=== PATIENT | male | born 1935 | race Caucasian/White ===

== ENCOUNTER → 2017-12-09 | Outpatient (CLI) | payer MEDICARE, OTHER ==
[2017-12-09 15:39] LABS: ABSOLUTE EOSINOPHILS # (AUTO) 0.1 10^3/uL (0.0-0.6); ABSOLUTE LYMPHOCYTES (AUTO) 1.3 10^3/uL (0.5-4.7); ABSOLUTE NEUT (AUTO) 9.8 10^3/uL (1.7-8.2); BASOPHILS % (AUTO) 0.3 % (0-2); HEMOGLOBIN 11.8 g/dL (13.5-17.0); LYMPHOCYTES % (AUTO) 10.5 % (13-45); MEAN CORPUSCULAR HEMOGLOBIN 33.4 pg (27.0-33.4); MEAN CORPUSCULAR HGB CONC 32.9 g/dL (32.0-36.0); MEAN CORPUSCULAR VOLUME 102 fl (80-97); PLATELET COUNT 236 10^3/uL (150-450); RED BLOOD COUNT 3.54 10^6/uL (4.35-5.55); RED CELL DISTRIBUTION WIDTH 12.9 % (11.5-14.0); SEGMENTED NEUTROPHILS % (AUTO) 80.2 % (42-78); TOTAL CELLS COUNTED % (AUTO) 100 %; WHITE BLOOD COUNT 12.2 10^3/uL (4.0-10.5)
[2017-12-09 15:57] LABS: ALANINE AMINOTRANSFERASE 38 U/L (21-72); ALBUMIN 3.5 g/dL (3.5-5.0); ALKALINE PHOSPHATASE 101 U/L (38-126); ANION GAP 7 (5-19); ASPARTATE AMINO TRANSFERASE 20 U/L (17-59); BILIRUBIN,DIRECT 0.3 mg/dL (0.0-0.4); BILIRUBIN,TOTAL 0.3 mg/dL (0.2-1.3); BLOOD UREA NITROGEN 22 mg/dL (7-20); CALCIUM 9.5 mg/dL (8.4-10.2); CARBON DIOXIDE 25 mmol/L (22-30); CHLORIDE 109 mmol/L (98-107); GLUCOSE 57 mg/dL (75-110); POTASSIUM 4.9 mmol/L (3.6-5.0); SODIUM 141.4 mmol/L (137-145); TOTAL PROTEIN 6.3 g/dL (6.3-8.2)
[2017-12-09 16:37] LABS: ERYTHROCYTE SEDIMENTATION RATE 63 mm/hr (0-20)
== END ==
LOC: OD 14:19
PROVIDERS: ATTEND Preventive Medicine Undersea and Hyperbaric Medicine
DX: E11.52 Type 2 diabetes mellitus with diabetic peripheral angiopathy with gangrene (principal); L03.039 Cellulitis of unspecified toe
CPT/HCPCS: 36415; 80053; 83036; 85025; 85652

== ENCOUNTER → 2017-12-12 | Outpatient (CLI) | payer MEDICARE, OTHER ==
--- NOTE | 2017-12-12 16:32 | XCELERA REPORT ---
[address] [address] Lower Extremity Arterial Evaluation Name: VANI ZHANG Age: 82 yrs Gender: Male : 1935 Patient Status: Outpatient Patient Location: Study Date: 12/12/2017 03:05 PM Procedure: A color flow and duplex scan of the lower extremity arteries was performed bilaterally with velocity and waveform anaylsis. Ankle brachial indicies performed. Reason For Study: PVD Ordering Physician: LILLIAN STOVER Performed By: Flor Esteves Measurements and Calculations Right Left BAIL BOND AGENT PSV 120.5 96.7 cm/sec Prox PFA PSV -42.8 -32.6 cm/sec Prox SFA PSV -69.9 72.0 cm/sec Mid SFA PSV -131.3 -73.3 cm/sec Dist SFA PSV -84.5 -76.4 cm/sec Prox Pop A PSV 72.3 60.2 cm/sec Dist ИРИНА PSV 51.9 34.3 cm/sec Dist BACK STAYER PSV 25.8 -57.2 cm/sec Ozzy Pedis PSV -56.7 57.2 cm/sec Right Side Arterial Evaluation Normal velocity and triphasic waveforms noted from the Common Femoral artery to the Popliteal artery. Biphasic int the deep Femoral artery. Monophasic in the infrageniculate vessels. 50-99 % stenosis at the infrageniculate vessels . Moderately preserved waveforms. Ankle Brachial index is 0.7. Left Side Arterial Evaluation Normal velocity and triphasic waveforms noted from the Common Femoral artery to the Popliteal artery. Biphasic int the deep Femoral artery. And in the infrageniculate vessels. 20-49 % stenosis at the infrageniculate vessels . Well preserved waveforms. Ankle Brachial index is 1.2 . Interpretation Summary Severe hemodynamically significant lesions in the right lower extremity only, on duplex imaging, at rest. Moderate hemodynamically significant lesions in the left lower extremity only, on duplex imaging, at rest. : LILLIAN STOVER > Emil Stokes
== END ==
LOC: SP 14:29
PROVIDERS: ATTEND Preventive Medicine Undersea and Hyperbaric Medicine
DX: I73.9 Peripheral vascular disease, unspecified (principal)
CPT/HCPCS: 93922; 93925

== ENCOUNTER → 2018-01-09 | Outpatient (CLI) | payer MEDICARE, OTHER ==
--- NOTE | 2018-01-14 14:22 | RADIOLOGY REPORT (SQ) ---
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 NUMBER OF VIEWS: Three views. TECHNIQUE: AP, lateral and oblique radiographic images acquired of the right foot. LIMITATIONS: None. FINDINGS: MINERALIZATION: Normal. BONES: Abnormal appearance of the 4th toe. Amputation versus abnormal destruction of the distal phal anx with associated soft tissue deformity. Apparent transverse fracture of the proximal phalanx with nonunion. Other chronic changes involving the midfoot with osteophytes and the 1st toe with hallux valgus and degenerative changes at the 1st metatarsal phalangeal joint. Spurring on the calcaneus wi th ossification in the plantar soft tissues. JOINTS: No effusions. SOFT TISSUES: No soft tissue swelling. No foreign body. OTHER: No other significant finding. IMPRESSION: ABNORMAL APPEARANCE OF THE 4TH TOE DESCRIBED. OTHER CHRONIC FINDINGS DISCUSSED ABOVE . TECHNICAL DOCUMENTATION: JOB ID: [id number] [employer]- All Rights Reserved Reading location - IP/workstation name: [email or web address]
== END ==
LOC: RAD 10:37
PROVIDERS: ATTEND Preventive Medicine Undersea and Hyperbaric Medicine
DX: E11.621 Type 2 diabetes mellitus with foot ulcer (principal); L97.512 Non-pressure chronic ulcer of other part of right foot with fat layer exposed

== ENCOUNTER → 2018-02-21 | Outpatient (CLI) | payer MEDICARE, OTHER ==
--- NOTE | 2018-02-21 12:07 | RADIOLOGY REPORT (SQ) ---
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 NUMBER OF VIEWS: Three views. TECHNIQUE: AP, lateral and oblique radiographic images acquired of the right foot. LIMITATIONS: None. FINDINGS: MINERALIZATION: Normal. BONES: No acute fracture or dislocation. 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 Old fracture of the proxim al phalanx with nonunion. Erosive changes of the 3rd and 4th metatarsal heads. Chronic changes in t he great toe with hallux valgus and sclerosis and osteophytes in the 1st metatarsal phalangeal joint. Chronic changes in the midfoot with osteophytes. Heel spur with calcification in the plantar soft tissues. SOFT TISSUES: No soft tissue swelling. No foreign body. OTHER: No other significant finding. IMPRESSION: CHRONIC CHANGES ABOVE, SIMILAR APPEARANCE TO THE PRIOR STUDY. TECHNICAL DOCUMENTATION: JOB ID: [id number] [employer]- All Rights Reserved Reading location - IP/workstation name: [email or web address]
== END ==
LOC: OD 11:33
PROVIDERS: ATTEND Preventive Medicine Undersea and Hyperbaric Medicine
DX: L97.512 Non-pressure chronic ulcer of other part of right foot with fat layer exposed (principal)

== ENCOUNTER → 2018-02-21 | Outpatient (CLI) | payer MEDICARE, OTHER ==
[2018-02-21 11:35] LABS: ABSOLUTE EOSINOPHILS # (AUTO) 0.5 10^3/uL (0.0-0.6); ABSOLUTE LYMPHOCYTES (AUTO) 1.7 10^3/uL (0.5-4.7); ABSOLUTE MONOCYTES (AUTO) 0.6 10^3/uL (0.1-1.4); ABSOLUTE NEUT (AUTO) 3.3 10^3/uL (1.7-8.2); BASOPHILS % (AUTO) 0.5 % (0-2); EOSINOPHILS % (AUTO) 7.5 % (0-6); HEMOGLOBIN 13.6 g/dL (13.5-17.0); LYMPHOCYTES % (AUTO) 27.8 % (13-45); MEAN CORPUSCULAR HEMOGLOBIN 33.4 pg (27.0-33.4); MEAN CORPUSCULAR HGB CONC 33.2 g/dL (32.0-36.0); MEAN CORPUSCULAR VOLUME 101 fl (80-97); MONOCYTES % (AUTO) 9.3 % (3-13); PLATELET COUNT 136 10^3/uL (150-450); RED BLOOD COUNT 4.08 10^6/uL (4.35-5.55); RED CELL DISTRIBUTION WIDTH 13.9 % (11.5-14.0); SEGMENTED NEUTROPHILS % (AUTO) 54.9 % (42-78); TOTAL CELLS COUNTED % (AUTO) 100 %; WHITE BLOOD COUNT 6.1 10^3/uL (4.0-10.5)
[2018-02-21 11:59] LABS: ALANINE AMINOTRANSFERASE 39 U/L (21-72); ALBUMIN 3.9 g/dL (3.5-5.0); ALKALINE PHOSPHATASE 97 U/L (38-126); ANION GAP 9 (5-19); ASPARTATE AMINO TRANSFERASE 27 U/L (17-59); BILIRUBIN,DIRECT 0.3 mg/dL (0.0-0.4); BILIRUBIN,TOTAL 0.3 mg/dL (0.2-1.3); BLOOD UREA NITROGEN 25 mg/dL (7-20); CALCIUM 9.4 mg/dL (8.4-10.2); CARBON DIOXIDE 27 mmol/L (22-30); CHLORIDE 108 mmol/L (98-107); GLUCOSE 119 mg/dL (75-110); POTASSIUM 5.1 mmol/L (3.6-5.0); SODIUM 143.9 mmol/L (137-145); TOTAL PROTEIN 6.6 g/dL (6.3-8.2)
[2018-02-21 12:00] LABS: C-REACTIVE PROTEIN < 5.0 mg/L (<10.0)
[2018-02-21 12:13] LABS: ERYTHROCYTE SEDIMENTATION RATE 16 mm/hr (0-20)
== END ==
LOC: WC 10:59
PROVIDERS: ATTEND Preventive Medicine Undersea and Hyperbaric Medicine
DX: E11.621 Type 2 diabetes mellitus with foot ulcer (principal); L97.512 Non-pressure chronic ulcer of other part of right foot with fat layer exposed
CPT/HCPCS: 36415; 80053; 83036; 85025; 85652; 86140

== ENCOUNTER → 2018-03-14 | Outpatient (CLI) | payer MEDICARE, OTHER ==
--- NOTE | 2018-03-14 11:47 | RADIOLOGY REPORT (SQ) ---
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 NUMBER OF VIEWS: Three views right foot. LIMITATIONS: Site of concern not indicated on the radiographs. Probable overlying artifact at the 4 th toe level. This limits assessment for interval change. FINDINGS: Compared to 02/21/2018, further resorption of the 4th metatarsal head. Probable further re sorption of the proximal phalanx as well, allowing for regional presumed artifact. Suspicious for pr ogressive osteomyelitis here. Other changes are stable including great toe DJD and extensive atheros clerotic calcification. OTHER: No other significant finding. IMPRESSION: Progressive 4th digit osteomyelitis. TECHNICAL DOCUMENTATION: JOB ID: [id number] Reading location - IP/workstation name: Unknown
== END ==
LOC: OD 10:26
PROVIDERS: ATTEND Preventive Medicine Undersea and Hyperbaric Medicine
DX: L97.512 Non-pressure chronic ulcer of other part of right foot with fat layer exposed (principal); M86.9 Osteomyelitis, unspecified

== ENCOUNTER → 2018-05-22 | Outpatient (CLI) | payer MEDICARE, OTHER ==
--- NOTE | 2018-05-22 11:48 | RADIOLOGY REPORT (SQ) ---
EXAM DESCRIPTION: FOOT RIGHT COMPLETE COMPLETED DATE/TIME: 05/22/2018 11:04 am REASON FOR STUDY: TYPE 2 DIABETES MELLITUS WITH FOOT ULCER; NON PRESSURE CHRONIC ULCER OF OTH L97.51 2 NON-PRS CHRONIC ULCER OT PRT RIGHT FOOT W FAT LAYER E11.621 TYPE 2 DIABETES MELLITUS WITH FOOT U LCER COMPARISON: 03/14/2018 NUMBER OF VIEWS: Three views. TECHNIQUE: AP, lateral and oblique radiographic images acquired of the right foot. LIMITATIONS: None. FINDINGS: MINERALIZATION: Normal. BONES: There has been further bony resorption of the proximal phalanx of the 4th digit and the 4th me tatarsal head consistent with bony involvement by osteomyelitis. JOINTS: Degenerative changes are again identified at the level of the 1st MTP joint. SOFT TISSUES: There is apparent soft tissue swelling. OTHER: Again there is plantar spurring in calcification in the plantar fascia IMPRESSION: Further bony resorption of the proximal phalanx of the 4th digit and the 4th metatarsal head consistent with bony involvement by osteomyelitis. Other findings as noted above. TECHNICAL DOCUMENTATION: JOB ID: [id number] [email or web address]- All Rights Reserved Reading location - IP/workstation name: [email or web address]
== END ==
LOC: OD 10:41
PROVIDERS: ATTEND Preventive Medicine Undersea and Hyperbaric Medicine
DX: E11.621 Type 2 diabetes mellitus with foot ulcer (principal); L97.512 Non-pressure chronic ulcer of other part of right foot with fat layer exposed

== ENCOUNTER 2018-06-23 06:56 | Emergency (ER) | payer MEDICARE, OTHER ==
--- NOTE | 2018-06-23 07:29 | ER Document Report ---
ED Seizure - General Chief Complaint: Seizure Stated Complaint: POSSIBLE SEIZURE Time Seen by Provider: 06/23/18 07:17 Notes: This is an 82-year-old male who had possible seizures this morning. History of seizures. states that she heard a loud scream. Went into the bedroom and patient was shaking. Patient currently takes phenytoin. Has not had a seizure in quite some time. Patient states the last thing he remembers is when he woke up here. Knows where he is out at this time. Denies any chest pain, headache, neck pain, abdominal pain or other symptoms at this time. Does have bite mann on bilateral lateral aspects of the tongue. - HPI Patient complains to provider of: History of seizures Severity: Moderate Pain Level: Denies Episode witnessed (by whom): Yes Current seizure medications: Phenytoin Character of seizure: Generalized shaking Post-ictal symptoms: Confusion Injuries: None Associated Symptoms: None - Related Data Allergies/Adverse Reactions: No Known Allergies Allergy (Unverified 05/10/15 13:34) Past Medical History - General Information source: Patient, Relative - Social History Smoking Status: Never Smoker Frequency of alcohol use: None Drug Abuse: None Lives with: Spouse/Significant other Family History: Reviewed & Not Pertinent Patient has suicidal ideation: No - unable to assess Patient has homicidal ideation: No - unable to assess - Past Medical History Cardiac Medical History: Denies: Hx Heart Attack, Hx Hypertension Pulmonary Medical History: Denies: Hx Asthma Neurological Medical History: Reports: Hx Seizures - 7-8 YEARS. Denies: Hx Cerebrovascular Accident Endocrine Medical History: Reports: Hx Diabetes Mellitus Type 2 Renal/ Medical History: Denies: Hx Peritoneal Dialysis GI Medical History: Denies: Hx Hepatitis, Hx Hiatal Hernia, Hx Ulcer Infectious Medical History: Denies: Hx Hepatitis Past Surgical History: Denies: Hx Open Heart Surgery, Hx Pacemaker Review of Systems - Review of Systems Notes: Constitutional: denies: Chills, Diaphoresis, Fever, Malaise, Weakness EENT: denies: Eye discharge, Blurred vision, Tearing, Double vision, Nose congestion, Nose discharge, Throat swelling, Mouth pain. Does have some pain on the tongue from biting it during a seizure Cardiovascular: denies: Palpitations, Heart racing, Orthopnea, Dyspnea, Chest pain Respiratory: denies: Cough, Hurts to breathe, Wheezing, Shortness of breath Gastrointestinal: denies: Abdominal pain, Diarrhea, Nausea, Vomiting, Black stools, bright red blood in stool Genitourinary: denies: Burning, Dysuria, Discharge, Frequency, Flank pain, Hematuria Musculoskeletal: denies: Joint pain, Joint swelling, Muscle pain, Muscle stiffness, back pain Hematologic/Lymphatic: denies: Anemia, Easy bleeding, Easy bruising, Blood clots Neurological/Psychological: denies: Confusion, Dementia, Depression, Loss of consciousness. Does endorse history of seizures since a seizure this morning. Skin: No lesions, no masses, no skin breakdown, no abscesses Physical Exam - Vital signs Vitals: Resp Pulse Ox 26 H 95 06/23/18 06:58 06/23/18 06:58 Interpretation: Normal - General General appearance: Appears well, Alert - HEENT Head: Normocephalic, Atraumatic Eyes: Normal Pupils: PERRL Mouth/Lips: Other - There are a few bite mann to the bilateral aspects of the lateral tongue. None requiring sutures. Neck: Normal. No: Brudzinski, Meningismus - Respiratory Respiratory status: No respiratory distress Chest status: Nontender Breath sounds: Normal Chest palpation: Normal - Cardiovascular Rhythm: Regular Heart sounds: Normal auscultation Murmur: No - Abdominal Inspection: Normal Distension: No distension Bowel sounds: Normal Tenderness: Nontender Organomegaly: No organomegaly - Back Back: Normal, Nontender - Extremities General upper extremity: Normal inspection, Nontender, Normal color, Normal ROM , Normal temperature General lower extremity: Normal inspection, Nontender, Normal color, Normal ROM , Normal temperature, Normal weight bearing. No: Jefe's sign - Neurological Neuro grossly intact: Yes Cognition: Normal Orientation: Disoriented to events. No: Disoriented to person, Disoriented to place, Disoriented to time Madhuri Coma Scale Eye Opening: Spontaneous [place] Coma Scale Verbal: Oriented [place] Coma Scale Motor: Obeys Commands Madhuri Coma Scale Total: 15 Speech: Normal Motor strength normal: LUE, RUE, LLE, RLE Additional motor exam normals: No: Involuntary movements, Pronator drift, Weakness Sensory: Normal - Psychological Associated symptoms: Normal affect, Normal mood - Skin Skin Temperature: Warm Skin Moisture: Dry Skin Color: Normal Course - Re-evaluation Re-evalutation: 06/23/18 07:52 Patient more likely had a seizure. We will get a head CT at this time because patient is on Aggrenox and a seizure and was hypertensive. 06/23/18 09:31 Patient more likely had a seizure. Phenytoin level subtherapeutic. Will load at this time. Head CT unremarkable. Basic labs fairly unremarkable. - Vital Signs Vital signs: Temp Pulse Resp BP Pulse Ox 19 137/71 H 96 06/23/18 09:00 06/23/18 08:01 06/23/18 09:00 - Laboratory Result Diagrams: 06/23/18 07:15 06/23/18 07:15 Laboratory results interpreted by me: 06/23/18 06/23/18 06/23/18 07:15 07:15 07:15 RBC 4.26 L MCV 103 H MCH 34.2 H RDW 14.7 H Plt Count 147 L Chloride 110 H BUN 25 H Urine Protein 100 H Urine Blood LARGE H Phenytoin 06/23/18 07:15 RBC MCV MCH RDW Plt Count Chloride BUN Urine Protein Urine Blood Phenytoin < 3.0 L - EKG Interpretation by Oh EKG shows normal: Sinus rhythm, [place], Intervals, QRS Complexes, ST-T Waves Discharge - Discharge Clinical Impression: Epilepsy Qualifiers: Epilepsy type: generalized idiopathic Intractability: not intractable Status epilepticus: without status epilepticus Qualified Code(s): G40.309 - Generalized idiopathic epilepsy and epileptic syndromes, not intractable, without status epilepticus Condition: Good Disposition: HOME, SELF-CARE Instructions: Seizure, Known Epileptic ([facility]) Additional Instructions: Please follow-up with your regular doctor or neurologist. Continue your regular medications. Referrals: GLEN CUEVAS MD [Primary Care Provider] - Follow up in 3-5 days
[2018-06-23 07:47] LABS: APPEARANCE,URINE SLIGHTLY-CLOUDY; BILIRUBIN,URINE NEGATIVE (NEGATIVE); COLOR,URINE YELLOW; GLUCOSE, URINE NEGATIVE (NEGATIVE); KETONES,URINE NEGATIVE (NEGATIVE); LEUKOCYTE ESTERASE,URINE NEGATIVE (NEGATIVE); NITRITE,URINE NEGATIVE (NEGATIVE); PROTEIN,URINE 100 mg/dL (NEGATIVE); UROBILINOGEN,URINE NEGATIVE mg/dL (<2.0)
[2018-06-23 08:22] LABS: ABSOLUTE EOSINOPHILS # (AUTO) 0.3 10^3/uL (0.0-0.6); ABSOLUTE LYMPHOCYTES (AUTO) 2.6 10^3/uL (0.5-4.7); ABSOLUTE MONOCYTES (AUTO) 0.6 10^3/uL (0.1-1.4); ABSOLUTE NEUT (AUTO) 3.3 10^3/uL (1.7-8.2); BASOPHILS % (AUTO) 0.2 % (0-2); EOSINOPHILS % (AUTO) 4.6 % (0-6); HEMATOCRIT 43.8 % (37.9-51.0); HEMOGLOBIN 14.5 g/dL (13.5-17.0); LYMPHOCYTES % (AUTO) 38.8 % (13-45); MEAN CORPUSCULAR HEMOGLOBIN 34.2 pg (27.0-33.4); MEAN CORPUSCULAR HGB CONC 33.2 g/dL (32.0-36.0); MEAN CORPUSCULAR VOLUME 103 fl (80-97); MONOCYTES % (AUTO) 8.2 % (3-13); PLATELET COUNT 147 10^3/uL (150-450); RED BLOOD COUNT 4.26 10^6/uL (4.35-5.55); RED CELL DISTRIBUTION WIDTH 14.7 % (11.5-14.0); SEGMENTED NEUTROPHILS % (AUTO) 48.2 % (42-78); TOTAL CELLS COUNTED % (AUTO) 100 %; WHITE BLOOD COUNT 6.8 10^3/uL (4.0-10.5)
[2018-06-23 08:33] LABS: ALANINE AMINOTRANSFERASE 43 U/L (21-72); ALKALINE PHOSPHATASE 117 U/L (38-126); ANION GAP 12 (5-19); ASPARTATE AMINO TRANSFERASE 40 U/L (17-59); BILIRUBIN,DIRECT 0.4 mg/dL (0.0-0.4); BILIRUBIN,TOTAL 0.5 mg/dL (0.2-1.3); BLOOD UREA NITROGEN 25 mg/dL (7-20); CALCIUM 8.8 mg/dL (8.4-10.2); CARBON DIOXIDE 22 mmol/L (22-30); CHLORIDE 110 mmol/L (98-107); GLUCOSE 103 mg/dL (75-110); POTASSIUM 4.2 mmol/L (3.6-5.0); SODIUM 143.5 mmol/L (137-145)
[2018-06-23 08:43] LABS: INTERNATIONAL RATION (INR) 0.99; PROTHROMBIN TIME 13.6 SEC (11.4-15.4)
[2018-06-23 08:44] LABS: PARTIAL THROMBOPLASTIN TIME 28.7 SEC (23.5-35.8)
--- NOTE | 2018-06-23 09:04 | RADIOLOGY REPORT (SQ) ---
EXAM DESCRIPTION: CT HEAD WITHOUT COMPLETED DATE/TIME: 06/23/2018 8:48 am REASON FOR STUDY: seizure, altered COMPARISON: None. TECHNIQUE: Axial images acquired through the brain without intravenous contrast. Images reviewed wi th bone, brain and subdural windows. Additional sagittal and coronal reconstructions were generated. Images stored on PACS. All CT scanners at this facility use dose modulation, iterative reconstruction, and/or weight based d osing when appropriate to reduce radiation dose to as low as reasonably achievable (ALARA). [facility]: Dose Right [facility]: CareDose [facility]: Dose Right [facility]: Teradose 4D [facility]: Smart [employer] RADIATION DOSE: CT Rad equipment meets quality standard of care and radiation dose reduction techniq ues were employed. CTDIvol: 53.2 mGy. DLP: 1097 mGy-cm.mGy. LIMITATIONS: None. FINDINGS: VENTRICLES: Prominent. CEREBRUM: No masses. No hemorrhage. No midline shift. Areas of low density in the white matter mos t likely due to chronic micro-vascular ischemic change. No evidence for acute infarction. CEREBELLUM: No masses. No hemorrhage. No alteration of density. No evidence for acute infarction. EXTRAAXIAL SPACES: Age-related involutional change. No fluid collections. No masses. ORBITS AND GLOBE: No intra- or extraconal masses. Normal contour of globe without masses. CALVARIUM: Old left frontal craniotomy. PARANASAL SINUSES: No fluid levels. SOFT TISSUES: No mass or hematoma. OTHER: No other significant finding. IMPRESSION: CHRONIC CHANGES OF ATROPHY AND MICROVASCULAR ISCHEMIA. NO ACUTE PROCESS. EVIDENCE OF ACUTE STROKE: NO. TECHNICAL DOCUMENTATION: JOB ID: [id number] Quality ID # [id number]: Final reports with documentation of one or more dose reduction techniques (e.g., Au tomated exposure control, adjustment of the mA and/or kV according to patient size, use of iterative reconstruction technique) 2010 [employer]- All Rights Reserved Reading location - IP/workstation name: [email or web address]
[2018-06-23] MEDS ORDERED: PHENYTOIN SODIUM INJ/PF 250 MG/5 ML SDV IV ONE ×2 (09:29→10:15)
--- NOTE | 2018-06-23 10:24 | EKG REPORT ---
SEVERITY:- ABNORMAL ECG - ATRIAL FLUTTER, A-RATE 254 LOW VOLTAGE IN FRONTAL LEADS : Confirmed by: Nino Maldonado 23-Jun-2018 10:24:09
[2018-06-23 12:36] VITALS: BP 120/35
== END 2018-06-23 12:36 | disposition home or self-care (01) ==
LOC: ER 06:56
DX: G40.309 Generalized idiopathic epilepsy and epileptic syndromes, not intractable, without status epilepticus (principal); Z79.899 Other long term (current) drug therapy; E11.9 Type 2 diabetes mellitus without complications; I10 Essential (primary) hypertension; Z79.02 Long term (current) use of antithrombotics/antiplatelets
CPT/HCPCS: 93005; 99285; 96365; 96366; 36415; 82962; 80185; 85025; 85610; 85730; 80053; 81001; 84484; 70450; 93010; J1165

== ENCOUNTER 2018-09-02 12:04 | Emergency (ER) | payer MEDICARE, OTHER ==
[2018-09-02] MEDS ORDERED: GLUCAGON,HUMAN RECOMB 1 MG INJ SUBCUT ONE (12:34)
[2018-09-02] MEDS ORDERED: DIAZEPAM INJ 10 MG/2 ML DISP.SYRIN IV ONE (12:34)
--- NOTE | 2018-09-02 12:35 | ER Document Report ---
ED Medical Screen (RME) - General Chief Complaint: Foreign Body Stated Complaint: FOREIGN BODY IN THROAT Time Seen by Provider: 09/02/18 12:29 Mode of Arrival: Ambulatory Information source: Patient Notes: 82 years old male with a history of esophageal strictures, this morning CABG since then feeling difficulty in swallowing. Therefore present to the ED. No drooling. Mild to moderate discomfort. No sharp pain. TRAVEL OUTSIDE OF THE [place] IN LAST 30 DAYS: No - Related Data Allergies/Adverse Reactions: No Known Allergies Allergy (Verified 09/02/18 12:05) Past Medical History - Past Medical History Cardiac Medical History: Denies: Hx Heart Attack, Hx Hypertension Pulmonary Medical History: Denies: Hx Asthma Neurological Medical History: Reports: Hx Seizures - 7-8 YEARS. Denies: Hx Cerebrovascular Accident Endocrine Medical History: Reports: Hx Diabetes Mellitus Type 2 Renal/ Medical History: Denies: Hx Peritoneal Dialysis GI Medical History: Denies: Hx Hepatitis, Hx Hiatal Hernia, Hx Ulcer Infectious Medical History: Denies: Hx Hepatitis Past Surgical History: Denies: Hx Open Heart Surgery, Hx Pacemaker Physical Exam - Vital signs Vitals: Temp Pulse Resp BP Pulse Ox 98.0 F 83 24 H 179/89 H 96 09/02/18 12:12 09/02/18 12:12 09/02/18 12:12 09/02/18 12:12 09/02/18 12:12 Course - Vital Signs Vital signs: Temp Pulse Resp BP Pulse Ox 98.0 F 83 24 H 179/89 H 96 09/02/18 12:12 09/02/18 12:12 09/02/18 12:12 09/02/18 12:12 09/02/18 12:12
--- NOTE | 2018-09-02 13:34 | ER Document Report ---
ED General - General Chief Complaint: Foreign Body Stated Complaint: FOREIGN BODY IN THROAT Time Seen by Provider: 09/02/18 12:29 Mode of Arrival: Ambulatory Notes: Patient is having difficulty swallowing and is actually unable to swallow at this time. He says he had this twice before in the past requiring the esophagus to be dilated. The most recent episode was a couple of years ago. He has exactly the same symptoms now as he had on 2 previous occasions. He says his symptoms began as he was eating breakfast this morning and it feels like his esophagus "builds up" food. patient contacted his local barrel cutter who advised him to come here. He has had an esophagus swallow study which shows complete obstruction of the distal esophagus. Patient denies any significant chest pains and no difficulty breathing or shortness of breath.. TRAVEL OUTSIDE OF THE [place] IN LAST 30 DAYS: No - Related Data Allergies/Adverse Reactions: No Known Allergies Allergy (Verified 09/02/18 12:05) Past Medical History - General Information source: Patient - Social History Smoking Status: Never Smoker Chew tobacco use (# tins/day): No Frequency of alcohol use: None Drug Abuse: None Family History: Reviewed & Not Pertinent Patient has suicidal ideation: No Patient has homicidal ideation: No Neurological Medical History: Reports: Hx Seizures - 7-8 YEARS Endocrine Medical History: Reports: Hx Diabetes Mellitus Type 1, Hx Diabetes Mellitus Type 2 GI Medical History: Reports: Other - Esophageal strictures Infectious Medical History: Denies: Hx Hepatitis Surgical Hx: Negative Review of Systems - Review of Systems Notes: REVIEW OF SYSTEMS: CONSTITUTIONAL : Denies fever. EENT: Denies eye, ear, nose or mouth or throat pain or other symptoms. CARDIOVASCULAR: Denies chest pain. RESPIRATORY: Denies cough, chest congestion, or shortness of breath. GASTROINTESTINAL: Denies abdominal pain or nausea, vomiting, or diarrhea. Feels tight in his esophagus region. GENITOURINARY: Denies difficulty or painful urinating, urinary frequency, blood in urine. MUSCULOSKELETAL: Denies back or neck pain. Denies joint pain or swelling. SKIN: Denies rash or skin lesions. NEUROLOGICAL: Denies LOC or altered mental status. Denies headache. Denies sensory loss or motor deficits. ALL OTHER SYSTEMS REVIEWED AND NEGATIVE. Physical Exam - Vital signs Vitals: Temp Pulse Resp BP Pulse Ox 98.0 F 83 24 H 179/89 H 96 09/02/18 12:12 09/02/18 12:12 09/02/18 12:12 09/02/18 12:12 09/02/18 12:12 Interpretation: Normal - Notes Notes: PHYSICAL EXAMINATION: GENERAL: Well-appearing, in no acute distress. Vital signs are all essentially normal. HEAD: Atraumatic, normocephalic. EYES: Pupils equal round and reactive to light, extraocular movements intact. ENT: oropharynx clear without exudates. Moist mucous membranes. NECK: Normal range of motion, supple. LUNGS: Breath sounds clear and equal bilaterally. HEART: Regular rate and rhythm without murmurs. ABDOMEN: Soft, nontender. No guarding or rebound. No masses. BACK: No tenderness throughout entire back. EXTREMITIES: Normal range of motion without pain. NEUROLOGICAL: Normal speech, normal gait. Normal sensory, motor, and reflex exams. Awake, alert, and oriented x3. Cranial nerves normal. PSYCH: Normal mood, normal affect. SKIN: Warm, dry, no rashes. Course - Re-evaluation Re-evalutation: 09/02/18 13:[address] Dia who will see the patient this afternoon and perform esophagoscopy to remove the food bolus. 09/02/18 18:[address] Dia arrived to perform his procedure, the patient was put on a monitor and we noted that he is in atrial fibrillation. Patient has no history of this disorder. Patient is not aware of any unusual beating of his heart. Certainly, no chest pains. Patient is on Aggrenox and has had previous vascular surgery on his lower extremities. Discussed this finding of apparent new onset atrial fibrillation with Dr. Doty and since the patient's heart rate is normal and we do not know how long this atrial fibrillation has been present and that the patient is on Aggrenox, he recommends not additionally anticoagulating him patient's, but rather, have him see his primary care physician, Dr. Webb, to determine any change in his medications. - Vital Signs Vital signs: Temp Pulse Resp BP Pulse Ox 98.0 F 100 24 H 155/83 H 91 L 09/02/18 12:12 09/02/18 18:25 09/02/18 18:31 09/02/18 18:31 09/02/18 18:31 - Laboratory Result Diagrams: 09/02/18 13:55 09/02/18 13:55 Laboratory results interpreted by me: 09/02/18 09/02/18 09/02/18 13:55 13:55 17:38 RBC 4.11 L MCV 102 H MCH 33.8 H RDW 14.2 H Plt Count 124 L Seg Neutrophils % 79.5 H Lymphocytes % 11.9 L Chloride 108 H BUN 22 H Glucose 42 L POC Glucose 58 L Lipase 20.4 L Discharge - Discharge Clinical Impression: Food impaction of esophagus, Atrial fibrillation Condition: Stable Disposition: HOME, SELF-CARE Additional Instructions: Esophageal Food Impaction Meat and poorly chewed food may stick in the lower esophagus, blocking it. We can relax the esophagus with medication, allowing the food to move into the stomach. Sometimes "carbonating" the water in the esophagus lifts food particles out of the obstruction and pushes the remaining food down. If these methods don't work, a tube is put down the esophagus to clear the blockage. Food "sticking" is called dysphagia. It's caused by a narrowing in the esophagus. Most commonly, it's due to chronic effects of esophagitis (an inflammation of the lower esophagus due to stomach acid, causing symptoms such as chest pain or heartburn). A hiatal hernia is often present. If the dysphagia has just begun, further testing to evaluate the cause of the obstruction will be necessary. If this is a recurrent problem, a procedure to dilate the esophagus may be necessary. Most commonly, the problem will resolve once swelling in the esophagus stops. Usual treatment is antacids or acid-suppressing medication. Membrane- coating medicine (such as Carafate), or medicine to keep acid out of the esophagus (such as Reglan) may be helpful for some patients. Call the doctor or return for re-evaluation if you develop chest pain, fever, shortness of breath, or inability to swallow fluids. Atrial Fibrillation Atrial fibrillation is an abnormal heart rhythm, caused by irregular electrical circuits in the upper heart chamber. It can be caused by heart valve disease, hardening of the arteries, or metabolic problems such as thyroid disease, or may occur without a clear cause. Atrial fibrillation may occur only occasionally, or may be chronic. Atrial fibrillation often results in a very fast heart rate, with palpitations, lightheadedness, and shortness of breath. Treatment is to slow the abnormally fast rate, and to convert the rhythm back to normal, if possible. Many patients stay in atrial fibrillation for years without symptoms or complications. Your doctor will decide whether you can be converted back to a normal heart rhythm. Contact the doctor or emergency medical system at once if you develop chest pain, shortness of breath, or severe lightheadedness, or if you develop any disturbance of consciousness, problems with speech, or localized weakness. Continue to take your Aggrenox every day to prevent blood clot formation from the atria of the heart. FOLLOW-UP CARE: If you have been referred to a physician for follow-up care, call the physician s office for an appointment as you were instructed or within the next two days. If you experience worsening or a significant change in your symptoms, notify the physician immediately or return to the Emergency Department at any time for re-evaluation. Dr. Dia said that he plans to dilate your esophagus in a few weeks. See Dr. Webb in the next day or 2 to determine if you need to be on any additional blood thinners. Referrals: GLEN WEBB MD [Primary Care Provider] - Follow up tomorrow AMELIA DIA MD [ACTIVE STAFF] - Follow up as needed
--- NOTE | 2018-09-02 13:39 | RADIOLOGY REPORT (SQ) ---
EXAM DESCRIPTION: BARIUM SWALLOW ESOPHAGUS COMPLETED DATE/TIME: 09/02/2018 1:02 pm REASON FOR STUDY: Dysphagia COMPARISON: None. TECHNIQUE: Under fluoroscopic guidance, patient ingested thick barium. Fluoroscopic spot images were acquired and stored on PACS. LIMITATIONS: None. FLUOROSCOPY TIME: 22 seconds 4 images saved to PACS. FINDINGS: NEUROMUSCULAR COORDINATION OF SWALLOW: Normal. No aspiration. ESOPHAGEAL MOTILITY: Normal peristalsis. No esophageal spasm. ESOPHAGEAL MUCOSA: Normal mucosa without masses or ulceration. GASTRO-ESOPHAGEAL JUNCTION: Complete obstruction of the distal esophagus at the GE junction. Food carlie marilyn is seen in place with mobile filling defects seen within the esophagus. No contrast is seen ente ring the stomach. NON-GI TRACT STRUCTURES: No significant finding. OTHER: No other significant finding. IMPRESSION: COMPLETE OBSTRUCTION OF THE DISTAL ESOPHAGUS AT THE GE JUNCTION WITH RETAINED FOOD BOLUS AND MOBILE FOOD PARTICLES WITHIN THE ESOPHAGUS. COMMENT: Report was called to Dr. Langley on 09/02/2018 at 1300 hours. Quality ID [id number]: Final reports for procedures using fluoroscopy that document radiation exposure jasbir jamie, or exposure time and number of fluorographic images (if radiation exposure indices are not avail able) TECHNICAL DOCUMENTATION: JOB ID: [id number] [employer]- All Rights Reserved Reading location - IP/workstation name: [email or web address] [id number]
[2018-09-02 14:23] LABS: ABSOLUTE EOSINOPHILS # (AUTO) 0.2 10^3/uL (0.0-0.6); ABSOLUTE LYMPHOCYTES (AUTO) 0.9 10^3/uL (0.5-4.7); ABSOLUTE MONOCYTES (AUTO) 0.4 10^3/uL (0.1-1.4); ABSOLUTE NEUT (AUTO) 5.9 10^3/uL (1.7-8.2); BASOPHILS % (AUTO) 0.3 % (0-2); EOSINOPHILS % (AUTO) 2.3 % (0-6); HEMATOCRIT 41.9 % (37.9-51.0); HEMOGLOBIN 13.9 g/dL (13.5-17.0); LYMPHOCYTES % (AUTO) 11.9 % (13-45); MEAN CORPUSCULAR HEMOGLOBIN 33.8 pg (27.0-33.4); MEAN CORPUSCULAR HGB CONC 33.1 g/dL (32.0-36.0); MEAN CORPUSCULAR VOLUME 102 fl (80-97); PLATELET COUNT 124 10^3/uL (150-450); RED BLOOD COUNT 4.11 10^6/uL (4.35-5.55); RED CELL DISTRIBUTION WIDTH 14.2 % (11.5-14.0); SEGMENTED NEUTROPHILS % (AUTO) 79.5 % (42-78); TOTAL CELLS COUNTED % (AUTO) 100 %; WHITE BLOOD COUNT 7.4 10^3/uL (4.0-10.5)
[2018-09-02 14:46] LABS: ALANINE AMINOTRANSFERASE 31 U/L (21-72); ALBUMIN 3.9 g/dL (3.5-5.0); ALKALINE PHOSPHATASE 102 U/L (38-126); ANION GAP 8 (5-19); ASPARTATE AMINO TRANSFERASE 24 U/L (17-59); BILIRUBIN,DIRECT 0.2 mg/dL (0.0-0.4); BILIRUBIN,TOTAL 0.4 mg/dL (0.2-1.3); BLOOD UREA NITROGEN 22 mg/dL (7-20); CALCIUM 9.2 mg/dL (8.4-10.2); CARBON DIOXIDE 27 mmol/L (22-30); CHLORIDE 108 mmol/L (98-107); GLUCOSE 42 mg/dL (75-110); LIPASE 20.4 U/L (23-300); POTASSIUM 4.4 mmol/L (3.6-5.0); SODIUM 143.3 mmol/L (137-145); TOTAL PROTEIN 6.6 g/dL (6.3-8.2)
[2018-09-02] MEDS ORDERED: FLUMAZENIL INJ 0.5 MG/5 ML VIAL ONE (17:07)
[2018-09-02] MEDS ORDERED: FENTANYL CITRATE INJ/PF 100 MCG/2 ML AMPUL ONE (17:07)
[2018-09-02] MEDS ORDERED: ONDANSETRON HCL INJ/PF 4 MG/2 ML SDV ONE (17:07)
[2018-09-02] MEDS ORDERED: MIDAZOLAM 2 MG/2 ML INJ ONE (17:07)
[2018-09-02] MEDS ORDERED: NALOXONE HCL INJ/PF 0.4 MG/1 ML SDV ONE (17:07)
[2018-09-02] MEDS ORDERED: EPINEPHRINE INJ 1 MG/10 ML DISP.SYRIN ONE (17:08)
[2018-09-02] MEDS ORDERED: GLUCAGON,HUMAN RECOMB 1 MG INJ ONE (17:08)
[2018-09-02] MEDS ORDERED: DEXTROSE 50%-WATER 25 GM/50 ML DISP.SYRIN IV ONE (17:44)
[2018-09-02 19:18] VITALS: BP 159/84
--- NOTE | 2018-09-02 21:06 | OPERATIVE REPORT E ---
Operative Report NAME: VANI ZHANG : 1935 AGE: 82Y DATE OF SURGERY: 09/02/2018 ROOM: PREOPERATIVE DIAGNOSIS: ESOPHAGEAL FOREIGN BODY. POSTOPERATIVE DIAGNOSES: 1. ESOPHAGEAL FOREIGN BODY. 2. GASTROESOPHAGEAL JUNCTION STRICTURE. 3. GRADE A ESOPHAGITIS. OPERATION: EGD with foreign body removal. SURGEON: AMELIA DIA M.D. ANESTHESIA: Versed 2 mg, fentanyl 50 mcg IV push. TISSUE REMOVED OR ALTERED: None. PROCEDURE: After informed consent obtained from the patient, conscious sedation was achieved. The panendoscope was inserted into the esophagus. Immediately, there was a large amount of food and barium noted in the esophagus. I was able to push the food down into the stomach through a stenotic GE junction. There was some erosion at the GE junction. He also had some polyps in the gastric body, but no other abnormality. He tolerated the procedure well. PLAN: Will start him on omeprazole 40 mg daily and he will undergo repeat EGD with dilation in a few weeks. DICTATING PHYSICIAN: AMELIA DIA M.D. [id number] PHY#: [id number] ID: [id number] JOB#: [id number] ACCT: [id number] cc:AMELIA DIA M.D. >
--- NOTE | 2018-09-02 22:11 | CONSULTATION REPORT E ---
Consultation Report NAME: VANI ZHANG : 1935 AGE: 82Y DATE: 09/02/2018 TO: AMELIA DIA M.D. FROM: EWELINA GARCIA M.D. Requesting Physician HISTORY: An 82-year-old patient who presented to the ER with inability to swallow. This started while he was eating breakfast. He was eating some cabbage, meat, and toast. He has not been able to swallow his saliva since then. He had a barium swallow in the hospital that showed complete obstruction at the distal esophagus. He has a history of an esophageal stricture that was dilated a few years ago. He has not been taking any PPI. He has dysphagia off and on, but has been able to manage. PAST MEDICAL HISTORY: Seizures, diabetes, reflux disease. PAST SURGICAL HISTORY: EGD, colonoscopies in the past. ALLERGIES: None. SOCIAL HISTORY: Noncontributory. REVIEW OF SYSTEMS: Other than above, this is noncontributory. PHYSICAL EXAMINATION: GENERAL: The patient is in no distress. VITAL SIGNS: Heart rate 88, blood pressure 180/90. HEENT: No pallor, no jaundice. Oropharynx normal. NECK: No bruit, no JVD. CHEST: No deformity. Lungs clear. HEART: S1, S2 normal with no murmur. ABDOMEN: Soft and nontender. Liver and spleen not palpable. Bowel sounds are clear. NEUROLOGIC: Grossly nonfocal. LABORATORY: H and H of 13 and 41. White count 7. Platelets 124. Chem-12 was normal except for BUN of 22 and a glucose of 42. ASSESSMENT AND PLAN: Esophageal foreign body. The need for an urgent endoscopy was explained to the patient and he is in agreement. He will likely need dilation now or in the future. He will need to be on a PPI indefinitely. DICTATING PHYSICIAN: AMELIA DIA M.D. [id number] PHY#: [id number] ID: [id number] JOB#: [id number] ACCT: [id number] cc:AMELIA DIA M.D. >
--- NOTE | 2018-09-03 08:22 | EKG REPORT ---
SEVERITY:- ABNORMAL ECG - ATRIAL FIBRILLATION, V-RATE 79-97 LOW VOLTAGE IN FRONTAL LEADS : Confirmed by: Janeth Doty MD 03-Sep-2018 08:21:37
== END 2018-09-02 19:17 | disposition home or self-care (01) ==
LOC: ER 12:04
DX: T17.228A Food in pharynx causing other injury, initial encounter (principal); K22.2 Esophageal obstruction; K20.9 Esophagitis, unspecified; I48.91 Unspecified atrial fibrillation; R13.10 Dysphagia, unspecified; E11.9 Type 2 diabetes mellitus without complications; X58.XXXA Exposure to other specified factors, initial encounter
CPT/HCPCS: 93005; 99284; 96374; 43235; 36415; 82962; 83690; 85025; 80053; 74220; 93010; J2250; J3490; J3010; J0171; J1610; J2310; J2405

== ENCOUNTER 2019-04-24 11:11 | Emergency (ER) | payer MEDICARE, OTHER ==
[2019-04-24] MEDS ORDERED: DIPH/PERTUSS(ACELL)/TETANUS VAC/PF 0.5 ML SYR (>=10YO) IM ONE (11:47)
--- NOTE | 2019-04-24 11:50 | ER Document Report ---
ED Medical Screen (RME) - General Chief Complaint: Toe Injury Stated Complaint: FOOT PAIN Time Seen by Provider: 04/24/19 11:45 Mode of Arrival: Wheelchair Information source: Relative Notes: Patient presents with family members after having multiple falls over the past 2 days. Family reports that patient has not been acting right over the past 2 weeks in which he will frequently have a blank look and not act normal. Patient denies any complaints at present. Family states that he injured his right foot falling and then a family member was pushing him in a wheelchair and his feet got caught underneath him getting reinjured. Patient denies any headache chest pain or any injuries. Patient has diabetic neuropathy and therefore has no foot pain. Patient does take Eliquis although family is uncertain why other than for his heart. I have greeted and performed a rapid initial assessment of this patient. A comprehensive ED assessment and evaluation of the patient, analysis of test results and completion of the medical decision making process will be conducted by additional ED providers. TRAVEL OUTSIDE OF THE [place] IN LAST 30 DAYS: No - Related Data Allergies/Adverse Reactions: No Known Allergies Allergy (Verified 09/02/18 12:05) Past Medical History - Past Medical History Cardiac Medical History: Denies: Hx Heart Attack, Hx Hypertension Pulmonary Medical History: Denies: Hx Asthma Neurological Medical History: Reports: Hx Seizures - 7-8 YEARS. Denies: Hx Cerebrovascular Accident Endocrine Medical History: Reports: Hx Diabetes Mellitus Type 1, Hx Diabetes Mellitus Type 2 Renal/ Medical History: Denies: Hx Peritoneal Dialysis GI Medical History: Denies: Hx Hepatitis, Hx Hiatal Hernia, Hx Ulcer Infectious Medical History: Denies: Hx Hepatitis Past Surgical History: Denies: Hx Open Heart Surgery, Hx Pacemaker Physical Exam - Vital signs Vitals: Temp Pulse Resp BP Pulse Ox 98.8 F 100 16 143/71 H 94 04/24/19 11:24 04/24/19 11:24 04/24/19 11:24 04/24/19 11:24 04/24/19 11:24 - General General appearance: Alert Notes: Patient responds to questions when asked directly. Patient with abrasions to right foot. No spinal midline tenderness or step-off, no obvious ecchymosis to trunk. Course - Vital Signs Vital signs: Temp Pulse Resp BP Pulse Ox 98.8 F 100 16 143/71 H 94 04/24/19 11:24 04/24/19 11:24 04/24/19 11:24 04/24/19 11:24 04/24/19 11:24
--- NOTE | 2019-04-24 12:33 | RADIOLOGY REPORT (SQ) ---
EXAM DESCRIPTION: CT HEAD WITHOUT COMPLETED DATE/TIME: 04/24/2019 12:16 pm REASON FOR STUDY: AMS, falls, takes eliquis COMPARISON: CT brain 06/23/2018 TECHNIQUE: Axial images acquired through the brain without intravenous contrast. Images reviewed wi th bone, brain and subdural windows. Additional sagittal and coronal reconstructions were generated. Images stored on PACS. All CT scanners at this facility use dose modulation, iterative reconstruction, and/or weight based d osing when appropriate to reduce radiation dose to as low as reasonably achievable (ALARA). [facility]: Dose Right [facility]: CareDose [facility]: Dose Right [facility]: Teradose 4D [facility]: Smart [employer] RADIATION DOSE: CT Rad equipment meets quality standard of care and radiation dose reduction techniq ues were employed. CTDIvol: 53.2 mGy. DLP: 1097 mGy-cm. mGy. LIMITATIONS: None. FINDINGS: VENTRICLES: Normal size and contour. CEREBRUM: No CT evidence of acute large vessel ischemic change, acute intracranial hemorrhage, mass e ffect, or midline shift. 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 There are multiple old lacunar infarcts scattered throughout the bifrontal and biparietal deep white matter, with old infarcts in the left thalamus and bilateral basal ganglia. CEREBELLUM: No masses. No hemorrhage. Low attenuation in the leftward half of the vipul likely repre sents an old infarct. No evidence for acute infarction. EXTRAAXIAL SPACES: Vascular clips in the left inferior frontal region ORBITS AND GLOBE: No intra- or extraconal masses. Normal contour of globe without masses. CALVARIUM: No acute fracture. Old left frontal craniotomy PARANASAL SINUSES: No fluid or mucosal thickening. SOFT TISSUES: No mass or hematoma. OTHER: No other significant finding. IMPRESSION: No acute findings EVIDENCE OF ACUTE STROKE: NO. COMMENT: Quality ID # [id number]: Final reports with documentation of one or more dose reduction techniques (e.g., Automated exposure control, adjustment of the mA and/or kV according to patient size, use of iterative reconstruction technique) TECHNICAL DOCUMENTATION: JOB ID: [id number] [employer]- All Rights Reserved Reading location - IP/workstation name: [email or web address]
--- NOTE | 2019-04-24 12:34 | RADIOLOGY REPORT (SQ) ---
EXAM DESCRIPTION: CT CERVICAL SPINE WITHOUT COMPLETED DATE/TIME: 04/24/2019 12:16 pm REASON FOR STUDY: fall COMPARISON: None. TECHNIQUE: Axial images acquired through the cervical spine without intravenous contrast. Images re viewed with lung, soft tissue and bone windows. Reconstructed coronal and sagittal MPR images review ed. Images stored on PACS. All CT scanners at this facility use dose modulation, iterative reconstruction, and/or weight based d osing when appropriate to reduce radiation dose to as low as reasonably achievable (ALARA). [facility]: Dose Right [facility]: CareDose [facility]: Dose Right [facility]: Teradose 4D [facility]: Smart [employer] RADIATION DOSE: CT Rad equipment meets quality standard of care and radiation dose reduction techniq ues were employed. CTDIvol: 25.4 mGy. DLP: 529 mGy-cm. mGy. LIMITATIONS: None. FINDINGS: ALIGNMENT: Anatomic. MINERALIZATION: Normal. VERTEBRAL BODIES: No fractures or dislocation. DISCS: Disc spaces are narrowed from C5- T1. Marginal osteophytes are present. FACETS, LATERAL MASSES, POSTERIOR ELEMENTS: Hypertrophic facet changes are present in the mid to uppe r cervical spine bilaterally. HARDWARE: None in the spine. VISUALIZED RIBS: No fractures. LUNG APICES AND SOFT TISSUES: 15 mm subpleural nodule in the left apex. OTHER: No other significant finding. IMPRESSION: Degenerative disc disease, spondylosis, and facet arthropathy. Subpleural nodule in the left lung apex. TECHNICAL DOCUMENTATION: JOB ID: [id number] Quality ID # [id number]: Final reports with documentation of one or more dose reduction techniques (e.g., Au tomated exposure control, adjustment of the mA and/or kV according to patient size, use of iterative reconstruction technique) 2010 [email or web address]- All Rights Reserved Reading location - IP/workstation name: [email or web address]
--- NOTE | 2019-04-24 13:06 | RADIOLOGY REPORT (SQ) ---
EXAM DESCRIPTION: FOOT BILATERAL 3 VIEWS COMPLETED DATE/TIME: 04/24/2019 12:48 pm REASON FOR STUDY: falls, bilat foot injury COMPARISON: None. NUMBER OF VIEWS: Three views. TECHNIQUE: AP, lateral and oblique radiographic images acquired of the right and left foot. LIMITATIONS: None. FINDINGS: MINERALIZATION: Normal. BONES: No acute fracture or dislocation. 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 JOINTS: Degenerative joint changes in each 1st metatarsal-phalangeal joint, left more than right. SOFT TISSUES: No soft tissue swelling. No foreign body. OTHER: No other significant finding. IMPRESSION: Degenerative joint disease. Amputation. No acute fracture is appears TECHNICAL DOCUMENTATION: JOB ID: [id number] [employer] All Rights Reserved Reading location - IP/workstation name: [email or web address]
--- NOTE | 2019-04-24 13:07 | RADIOLOGY REPORT (SQ) ---
EXAM DESCRIPTION: CHEST 2 VIEWS COMPLETED DATE/TIME: 04/24/2019 12:48 pm REASON FOR STUDY: AMS, falls COMPARISON: None. EXAM PARAMETERS: NUMBER OF VIEWS: two views TECHNIQUE: Digital Frontal and Lateral radiographic views of the chest acquired. RADIATION DOSE: NA LIMITATIONS: none FINDINGS: LUNGS AND PLEURA: No opacities, masses or pneumothorax. No pleural effusion. MEDIASTINUM AND HILAR STRUCTURES: No masses or contour abnormalities. HEART AND VASCULAR STRUCTURES: Heart normal size. No evidence for failure. BONES: No acute findings. HARDWARE: None in the chest. OTHER: No other significant finding. IMPRESSION: NO ACUTE RADIOGRAPHIC FINDING IN THE CHEST. TECHNICAL DOCUMENTATION: JOB ID: [id number] [employer]- All Rights Reserved Reading location - IP/workstation name: [email or web address]
[2019-04-24 13:55] LABS: ABSOLUTE EOSINOPHILS # (AUTO) 0.1 10^3/uL (0.0-0.6); ABSOLUTE LYMPHOCYTES (AUTO) 0.7 10^3/uL (0.5-4.7); ABSOLUTE MONOCYTES (AUTO) 0.5 10^3/uL (0.1-1.4); ABSOLUTE NEUT (AUTO) 5.6 10^3/uL (1.7-8.2); BASOPHILS % (AUTO) 0.3 % (0-2); HEMATOCRIT 41.5 % (37.9-51.0); HEMOGLOBIN 13.7 g/dL (13.5-17.0); LYMPHOCYTES % (AUTO) 9.8 % (13-45); MEAN CORPUSCULAR HEMOGLOBIN 33.5 pg (27.0-33.4); MEAN CORPUSCULAR VOLUME 102 fl (80-97); MONOCYTES % (AUTO) 6.9 % (3-13); PLATELET COUNT 118 10^3/uL (150-450); RED BLOOD COUNT 4.08 10^6/uL (4.35-5.55); RED CELL DISTRIBUTION WIDTH 14.1 % (11.5-14.0); TOTAL CELLS COUNTED % (AUTO) 100 %; WHITE BLOOD COUNT 6.8 10^3/uL (4.0-10.5)
[2019-04-24 14:01] LABS: INTERNATIONAL RATION (INR) 0.94; PARTIAL THROMBOPLASTIN TIME 28.8 SEC (23.5-35.8)
[2019-04-24 14:11] LABS: ALANINE AMINOTRANSFERASE 37 U/L (21-72); ALBUMIN 4.1 g/dL (3.5-5.0); ALKALINE PHOSPHATASE 119 U/L (38-126); ANION GAP 9 (5-19); ASPARTATE AMINO TRANSFERASE 31 U/L (17-59); BILIRUBIN,DIRECT 0.3 mg/dL (0.0-0.4); BILIRUBIN,TOTAL 0.5 mg/dL (0.2-1.3); BLOOD UREA NITROGEN 33 mg/dL (7-20); CALCIUM 9.4 mg/dL (8.4-10.2); CARBON DIOXIDE 26 mmol/L (22-30); CHLORIDE 104 mmol/L (98-107); POTASSIUM 5.2 mmol/L (3.6-5.0); SODIUM 138.7 mmol/L (137-145); TOTAL PROTEIN 6.7 g/dL (6.3-8.2)
[2019-04-24 14:24] LABS: GLUCOSE 471 mg/dL (75-110)
[2019-04-24] MEDS ORDERED: NORMAL SALINE 1000 ML 1,000 ML IV ONE (15:42)
--- NOTE | 2019-04-24 15:49 | ER Document Report ---
ED General - General Chief Complaint: Toe Injury Stated Complaint: FOOT PAIN Time Seen by Provider: 04/24/19 11:45 Primary Care Provider: GLEN WEBB MD [Primary Care Provider] - Follow up as needed LILLIAN GUY DPM [ACTIVE STAFF] - Follow up as needed Mode of Arrival: Wheelchair Notes: Patient is an 83-year-old male with a history of diabetes, atrial fibrillation, and seizures who presents to the emergency department after multiple falls this week. Family states that patient has fallen 4 times this week at home. Patient states that his legs become weak causing him to fall. They deny head injury or loss of consciousness. Patient is on a blood thinner Eliquis for the A. fib. Family also reports that they had to call EMS twice this week for low blood sugars. Patient states that his blood sugar was not low during the falls. Patient states that he just generally feels weak in his legs. Patient does not use a cane or a walker. Patient's last seizure was 8 years ago and is on medication for this. Patient states that he has been taking his insulin and metformin. That his sugars have been running low not high. Family states that they were pushing him in a wheelchair this morning when they noticed his right foot was dragging on the ground causing multiple abrasions and skin tears to the tips of his toes. Patient was going to go to his primary care physician Dr. Webb who sent them over here for further evaluation. TRAVEL OUTSIDE OF THE [place] IN LAST 30 DAYS: No - Related Data Allergies/Adverse Reactions: No Known Allergies Allergy (Verified 09/02/18 12:05) Past Medical History - General Information source: Relative - Social History Smoking Status: Never Smoker Chew tobacco use (# tins/day): No Frequency of alcohol use: None Drug Abuse: None Family History: Reviewed & Not Pertinent Patient has suicidal ideation: No Patient has homicidal ideation: No - Past Medical History Cardiac Medical History: Denies: Hx Heart Attack, Hx Hypertension Pulmonary Medical History: Denies: Hx Asthma Neurological Medical History: Reports: Hx Seizures - 7-8 YEARS. Denies: Hx Cerebrovascular Accident Endocrine Medical History: Reports: Hx Diabetes Mellitus Type 1, Hx Diabetes Mellitus Type 2 Renal/ Medical History: Denies: Hx Peritoneal Dialysis GI Medical History: Denies: Hx Hepatitis, Hx Hiatal Hernia, Hx Ulcer Infectious Medical History: Denies: Hx Hepatitis Past Surgical History: Denies: Hx Open Heart Surgery, Hx Pacemaker Physical Exam - Vital signs Vitals: Temp Pulse Resp BP Pulse Ox 98.8 F 100 16 143/71 H 94 04/24/19 11:24 04/24/19 11:24 04/24/19 11:24 04/24/19 11:24 04/24/19 11:24 Interpretation: Normal - Notes Notes: GENERAL: Well-appearing, well-nourished and in no acute distress. HEAD: Atraumatic, normocephalic. EYES: Pupils irregular in shape and cataract noted bilaterally and reactive to light (family report this appears to be his normal), extraocular movements intact, sclera anicteric, conjunctiva are normal. ENT: TMs normal, nares patent, oropharynx clear without exudates. Moist mucous membranes. Tongue midline. No dental trauma. NECK: Normal range of motion, supple without lymphadenopathy or JVD. LUNGS: Breath sounds clear to auscultation bilaterally and equal. No wheezes rales or rhonchi. HEART: Regular rate and rhythm without murmurs, rubs or gallops. ABDOMEN: Soft, round, nontender, normoactive bowel sounds. No guarding, no rebound. No masses appreciated. No [employer] noted on the abdomen. BACK: No cervical, thoracic, lumbar midline tenderness. No saddle anesthesia, normal distal neurovascular exam. GENITOURINARY: Deferred. EXTREMITIES: Scattered abrasions noted to bilateral lower extremities in various stages of healing. + edema to bilateral feet, +1 pitting. Multiple skin tears to the top of toes on right foot. No active bleeding. No obvious deformity. 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 NEUROLOGICAL: Cranial nerves II through XII grossly intact. Normal speech. PSYCH: Normal mood, normal affect. SKIN: Warm, Dry, normal turgor, no rashes or lesions noted. Course - Re-evaluation Re-evalutation: 04/24/19 Upon initial examination of the patient he is sitting upright on the stretcher resting comfortably. He is in no distress. Daughter and at bedside who also live with the patient and who are the primary care providers. states that the patient does have a history of seizures and his last one was 8 years ago. She states that they have had to call EMS multiple times over the past week for hypoglycemia. She reports that he takes 8 units of Lantus in the morning and 8 units of Lantus at night. He also takes a NovoLog sliding scale with meals as well as Glucophage 1000 mg p.o. daily. Patient is on a blood thinner for his history of A. fib. Patient does have a history of diabetic neuropathy. Family states that he has fallen over the past few weeks. Patient states that he tends to walk but that his legs feel weak and since he has diabetic neuropathy is unable to feel his feet. Patient states he has never hit his head or passed out from a fall. The states he does have a cane at home but does not use it. I did educate the patient on always wearing nonskid socks or shoes, in the cane and I will provide a prescription for a walker as he does need to use this. Did inquire about the initial complaint of the patient not acting himself for the past 2 weeks. The family did state that he does become hypoglycemic and will mumble. Family states that they were told by EMS that this is because his sugars were low. I did inform the patient and his family to keep juices and sugar nearby in case this does happen again. For me the patient has been alert and oriented x3, it appears that his and daughter attempt to answer most of the questions prior to him getting a chance to. After liter bolus of saline patient blood sugar remained at 400. Patient remains nontoxic-appearing and states feeling better after receiving the fluid. We will give 6 units of regular insulin subcut prior to discharge. I did inform the and family to monitor his blood sugar closely as he has been hypoglycemic at home. Initially the family question how to use the Accu-Chek machine at home. I did evaluate the machine which did appear to work. The patient himself states that he knows how to use the machine and has been working without difficulty lately. Inform the patient and his family that he needs to follow-up with Dr. Guy his foot doctor due to the wounds on his feet from the wheelchair injury today. I did educate them on watching for signs and symptoms of infection as he has increased due to his uncontrolled sugars and history of amputation. I did tell the family to write down his blood sugars and that when they are giving his medications as this can be beneficial for his primary care physician as they may need to adjust his insulin dosages. Placed the patient on a prophylactic antibiotic to cover Pseudomonas as he is a diabetic with open wounds on his feet. His x-ray and CTs were negative for any acute fracture, bleed, or abnormality. It was noted that the patient has had a history of old infarcts in the brain but none that were new. - Vital Signs Vital signs: Temp Pulse Resp BP Pulse Ox 98.8 F 100 22 H 170/86 H 99 04/24/19 11:24 04/24/19 11:24 04/24/19 19:30 04/24/19 19:31 04/24/19 18:01 - Laboratory Result Diagrams: 04/24/19 13:46 04/24/19 13:46 Laboratory results interpreted by me: 04/24/19 04/24/19 04/24/19 13:46 13:46 17:59 RBC 4.08 L MCV 102 H MCH 33.5 H RDW 14.1 H Plt Count 118 L Seg Neutrophils % 82.0 H Lymphocytes % 9.8 L Potassium 5.2 H BUN 33 H Glucose 471 H* POC Glucose 400 H - Diagnostic Test Radiology reviewed: Reports reviewed - EKG Interpretation by Me EKG shows normal: Sinus rhythm Rate: Normal Rhythm: NSR Heart block present: 1st Degree When compared to previous EKG there are: Changes noted - Previous ekg showed A fib., Other - Previous EKG showed Discharge - Discharge Clinical Impression: Hyperglycemia due to type 2 diabetes mellitus Qualifiers: Diabetes mellitus manager terminal insulin use: with usp use Qualified Code(s): E11.65 - Type 2 diabetes mellitus with hyperglycemia Fall Qualifiers: Encounter type: initial encounter Qualified Code(s): W19.XXXA - Unspecified fall, initial encounter Condition: Stable Disposition: HOME, SELF-CARE Additional Instructions: Today you were seen in the emergency department for a right foot injury and recent falls. We did obtain a CT of the head, neck and a foot x-ray did not which did not show any acute bleed or fracture. It was found that your blood sugar was in the 400s. We did give you a dose of 6 units of regular insulin prior to discharge and a liter of fluids. It is imperative that you monitor your blood sugars closely. Your wounds to the foot have been cleaned and dressed appropriately. Remove the dressing in 24 to 48 hours to reevaluate the wounds. Since you are diabetic you are at increased risk for infection. I am prescribing a prophylactic antibiotic called Keflex that you will take for 1 week. Due to your elevated blood sugar I do recommend following up with your foot doctor, Dr. Guy. Please call him on Saturday to make an appointment so they can reassess the foot injury. Please return to the emergency department for any worsening signs or symptoms to include extremely high blood sugars or low blood sugars. Please return the emergency department for any disorientation, dizziness, fall where you lose consciousness or strike your head. You are on a blood thinner called Eliquis and falls can result in significant injury and cause bleeding. Hyperglycemia (High Blood Sugar) You have an abnormally high blood sugar. Not all high blood sugar requires long-term treatment. High blood sugar can be due to medications, , or the stress of illness. (These cases are "borderline diabetes.") If the doctor feels your high blood sugar might resolve with time, you may not require treatment now. You will be scheduled for further evaluation. It's very important that you follow through, to see if the blood sugar returns to normal levels. Uncontrolled high blood sugar leads to early heart disease, strokes, nerve damage, eye damage, and kidney damage. Call the physician if there is faintness, excess sleepiness, or very rapid breathing. Prescriptions: Cephalexin Monohydrate [Keflex 500 mg Capsule] 500 mg PO Q6H 7 Days capsule Walker [Folding Walker] 1 each MC ASDIR PRN #1 each PRN Reason: Referrals: GLEN WEBB MD [Primary Care Provider] - Follow up as needed LILLIAN GUY DPM [ACTIVE STAFF] - Follow up as needed
[2019-04-24] MEDS ORDERED: INSULIN REG, HUMAN 100 UNIT/ML 3 ML VIAL (PYX) SUBCUT ONE (18:28)
--- NOTE | 2019-04-24 19:15 | EKG REPORT ---
SEVERITY:- ABNORMAL ECG - SINUS RHYTHM FIRST DEGREE AV BLOCK : Confirmed by: Janeth Doty MD 24-Apr-2019 19:15:22
[2019-04-24 19:35] VITALS: BP 170/86
== END 2019-04-24 19:47 | disposition home or self-care (01) ==
LOC: ER 11:11
DX: Z04.3 Encounter for examination and observation following other accident (principal); E11.65 Type 2 diabetes mellitus with hyperglycemia; E11.40 Type 2 diabetes mellitus with diabetic neuropathy, unspecified; Z79.4 Long term (current) use of insulin; Z79.84 Long term (current) use of oral hypoglycemic drugs; S91.119A Laceration without foreign body of unspecified toe without damage to nail, initial encounter; S80.812A Abrasion, left lower leg, initial encounter; X58.XXXA Exposure to other specified factors, initial encounter; R53.1 Weakness; R60.0 Localized edema; I44.0 Atrioventricular block, first degree; H21.563 Pupillary abnormality, bilateral; I48.91 Unspecified atrial fibrillation; Z79.02 Long term (current) use of antithrombotics/antiplatelets; R56.9 Unspecified convulsions; Z79.899 Other long term (current) drug therapy
CPT/HCPCS: 93005; 99284; 96360; 90471; 36415; 82962; 83735; 85025; 85610; 85730; 80053; 84484; 71046; 73630; 70450; 72125; 90715; 93010; A9270; J7030; J1815

== ENCOUNTER 2019-04-25 17:50 | Emergency (ER) | payer MEDICARE, OTHER ==
[2019-04-25 18:56] LABS: VENOUS BLOOD BASE EXCESS -8.4 mmol/L; VENOUS BLOOD HCO3 16.7 mmol/L (20-32); VENOUS BLOOD PCO2 33.3 mmHg (35-63); VENOUS BLOOD PH 7.32 (7.30-7.42)
[2019-04-25 19:02] LABS: ABSOLUTE LYMPHOCYTES (AUTO) 0.7 10^3/uL (0.5-4.7); ABSOLUTE MONOCYTES (AUTO) 0.4 10^3/uL (0.1-1.4); ABSOLUTE NEUT (AUTO) 4.2 10^3/uL (1.7-8.2); BASOPHILS % (AUTO) 0.2 % (0-2); EOSINOPHILS % (AUTO) 0.2 % (0-6); HEMATOCRIT 37.3 % (37.9-51.0); HEMOGLOBIN 12.2 g/dL (13.5-17.0); LYMPHOCYTES % (AUTO) 12.7 % (13-45); MEAN CORPUSCULAR HEMOGLOBIN 33.3 pg (27.0-33.4); MEAN CORPUSCULAR HGB CONC 32.6 g/dL (32.0-36.0); MEAN CORPUSCULAR VOLUME 102 fl (80-97); MONOCYTES % (AUTO) 7.9 % (3-13); PLATELET COUNT 108 10^3/uL (150-450); RED BLOOD COUNT 3.66 10^6/uL (4.35-5.55); RED CELL DISTRIBUTION WIDTH 14.2 % (11.5-14.0); TOTAL CELLS COUNTED % (AUTO) 100 %; WHITE BLOOD COUNT 5.3 10^3/uL (4.0-10.5)
[2019-04-25 19:17] LABS: ANION GAP 12 (5-19); BLOOD UREA NITROGEN 31 mg/dL (7-20); CALCIUM 8.7 mg/dL (8.4-10.2); CARBON DIOXIDE 19 mmol/L (22-30); CHLORIDE 107 mmol/L (98-107); POTASSIUM 5.1 mmol/L (3.6-5.0); SODIUM 137.6 mmol/L (137-145)
[2019-04-25 19:28] LABS: GLUCOSE 565 mg/dL (75-110)
[2019-04-25] MEDS ORDERED: RINGERS SOLUTION,LACTATED 1,000 ML IV ONE (19:29)
--- NOTE | 2019-04-25 20:01 | ER Document Report ---
ED General - General Chief Complaint: High Blood Sugar Stated Complaint: BLOOD SUGAR ISSUES Time Seen by Provider: 04/25/19 18:40 Primary Care Provider: GLEN CUEVAS MD [Primary Care Provider] - Follow up as needed Cannot obtain history due to: Dementia Notes: Patient is an 83-year-old male with past medical history of dementia, insulin- dependent type 2 diabetes, presents by EMS due to confusion, not acting like himself. Family not available at the time of my assessment although apparently has been having difficulty helping to control the patient's blood sugars. Patient was seen here yesterday due to concerns of hyperglycemia after having medication adjustments due to repeated hypoglycemia. The patient is unable to provide any meaningful history. Arrived by EMS soiled in feces and urine. TRAVEL OUTSIDE OF THE [place] IN LAST 30 DAYS: No - Related Data Allergies/Adverse Reactions: No Known Allergies Allergy (Verified 09/02/18 12:05) Past Medical History - General Information source: Patient - Social History Smoking Status: Never Smoker Chew tobacco use (# tins/day): No Frequency of alcohol use: None Drug Abuse: None Lives with: Family Family History: Reviewed & Not Pertinent Patient has suicidal ideation: No Patient has homicidal ideation: No - Past Medical History Cardiac Medical History: Denies: Hx Heart Attack, Hx Hypertension Pulmonary Medical History: Denies: Hx Asthma Neurological Medical History: Reports: Hx Seizures - 7-8 YEARS. Denies: Hx Cerebrovascular Accident Endocrine Medical History: Reports: Hx Diabetes Mellitus Type 1, Hx Diabetes Mellitus Type 2 Renal/ Medical History: Denies: Hx Peritoneal Dialysis GI Medical History: Denies: Hx Hepatitis, Hx Hiatal Hernia, Hx Ulcer Infectious Medical History: Denies: Hx Hepatitis Past Surgical History: Denies: Hx Open Heart Surgery, Hx Pacemaker Review of Systems - Review of Systems Notes: Constitutional: Negative for fever. HENT: Negative for sore throat. Eyes: Negative for visual changes. Cardiovascular: Negative for chest pain. Respiratory: Negative for shortness of breath. Gastrointestinal: Negative for abdominal pain, vomiting or diarrhea. Genitourinary: Negative for dysuria. Musculoskeletal: Negative for back pain. Skin: Positive for skin breakdown bilateral lower extremities, diabetic foot ulcers bilaterally Neurological: Negative for headaches, weakness or numbness. 10 point ROS negative except as marked above and in HPI. Physical Exam - Vital signs Vitals: Resp Pulse Ox 16 94 04/25/19 18:49 04/25/19 18:49 Interpretation: Hypertensive Notes: PHYSICAL EXAMINATION: GENERAL: Elderly male, somewhat emaciated but in no acute distress HEAD: Atraumatic, normocephalic. EYES: Pupils equal round and reactive to light, extraocular movements intact, sclera anicteric, conjunctiva are normal. ENT: nares patent, oropharynx clear without exudates. Moderately dry mucous membranes. NECK: Normal range of motion, supple without lymphadenopathy LUNGS: Breath sounds clear to auscultation bilaterally and equal. No wheezes rales or rhonchi. HEART: Regular rate and rhythm without murmurs ABDOMEN: Soft, nontender, normoactive bowel sounds. No guarding, no rebound. No masses appreciated. EXTREMITIES: Normal range of motion, no pitting or edema. No cyanosis. NEUROLOGICAL: Face symmetric. Tongue protrudes midline. Extraocular motions intact. Pupils are 2 mm and equally reactive. Normal speech. 5 out of 5 strength in both the distal and proximal upper and lower extremities bilaterally. Sensation is grossly intact throughout. PSYCH: Somewhat somnolent, oriented to person, place but not year or current events SKIN: Warm, Dry, normal turgor, there is skin breakdown and ulceration of the first through third toes Course - Re-evaluation Re-evalutation: 04/25/19 20:08 Patient presents with primarily the family being unable to care for him at home. The family is not following the diabetic regiment that was advised yesterday, admits this at bedside when they do arrive. The patient appears to have progressive dementia. His labs do not indicate HHS, sugar is less than 600, no evidence of DKA. Urinalysis is pending. No evidence of infection to the wounds in the bilateral lower extremities and he was started on antibiotic prophylaxis yesterday. This patient likely needs to be in a [facility] facility and or have extensive assistance at home. I did discuss with the hospitalist on-call Dr. Willams who confirms that this patient does not meet admission criteria at this time. 04/25/19 20:53 Urinalysis likewise unremarkable. I have advised the family of need to obtain in-home assistance and social work consult has been placed. Patient does not meet admission criteria and will be discharged with recommendations for appropriate diabetic management at home. At this time will discharge with return precautions and follow-up recommendations. Verbal discharge instructions given a the bedside and opportunity for questions given. Medication warnings reviewed. Family is in agreement with this plan and has verbalized understanding of return precautions and the need for primary care follow-up in the next 24-72 hours. - Vital Signs Vital signs: Temp Pulse Resp BP Pulse Ox 18 97 04/25/19 19:00 04/25/19 19:00 - Laboratory Result Diagrams: 04/25/19 18:14 04/25/19 18:14 Laboratory results interpreted by me: 04/25/19 04/25/19 04/25/19 18:14 18:14 18:14 RBC 3.66 L Hgb 12.2 L Hct 37.3 L MCV 102 H RDW 14.2 H Plt Count 108 L Seg Neutrophils % 79.0 H Lymphocytes % 12.7 L VBG pCO2 VBG HCO3 Potassium 5.1 H Carbon Dioxide 19 L BUN 31 H Glucose 565 H* Serum Osmolality 326 H Urine Glucose (UA) Urine Ketones Urine Blood 04/25/19 04/25/19 18:40 20:22 RBC Hgb Hct MCV RDW Plt Count Seg Neutrophils % Lymphocytes % VBG pCO2 33.3 L VBG HCO3 16.7 L Potassium Carbon Dioxide BUN Glucose Serum Osmolality Urine Glucose (UA) >=500 H Urine Ketones 80 H Urine Blood MODERATE H Discharge - Discharge Clinical Impression: Confusion Hyperglycemia due to type 2 diabetes mellitus Qualifiers: Diabetes mellitus continuous churn buttermaker insulin use: with continuous churn buttermaker use Qualified Code(s): E11.65 - Type 2 diabetes mellitus with hyperglycemia; Z79.4 - nursing home (curren t) use of insulin Diabetic foot ulcers Qualifiers: Diabetic foot ulcer location: unspecified part of foot Diabetes mellitus type: type 2 Laterality: unspecified laterality Non-pressure ulcer stage: limited to breakdown of skin Qualified Code(s): E11.621 - Type 2 diabetes mellitus with foot ulcer; L97.501 - Non-pressure chronic ulcer of other part of unspecified foot limited to breakdown of skin Condition: Stable Disposition: HOME, SELF-CARE Additional Instructions: You need to establish in-home services through your primary care doctor. Alternatively you need to consider whether or not you can remain at home and might need to be in an assisted living facility or a nursing facility. Today her labs are unchanged from yesterday. It is very important that you take your insulin regiment as prescribed. Return for fever greater than 100.4 F, passing out, vomiting, or any other symptoms that are worrisome to you. Referrals: GLEN CUEVAS MD [Primary Care Provider] - Follow up as needed
[2019-04-25 20:32] LABS: APPEARANCE,URINE CLEAR; BILIRUBIN,URINE NEGATIVE (NEGATIVE); COLOR,URINE STRAW; GLUCOSE, URINE >=500 mg/dL (NEGATIVE); KETONES,URINE 80 mg/dL (NEGATIVE); LEUKOCYTE ESTERASE,URINE NEGATIVE (NEGATIVE); NITRITE,URINE NEGATIVE (NEGATIVE); PROTEIN,URINE NEGATIVE (NEGATIVE); URINE SPECIFIC GRAVITY 1.022; UROBILINOGEN,URINE NEGATIVE mg/dL (<2.0)
[2019-04-25 21:54] VITALS: BP 160/82
== END 2019-04-25 21:50 | disposition home or self-care (01) ==
LOC: ER 17:50
DX: E11.65 Type 2 diabetes mellitus with hyperglycemia (principal); E11.621 Type 2 diabetes mellitus with foot ulcer; L97.521 Non-pressure chronic ulcer of other part of left foot limited to breakdown of skin; L97.511 Non-pressure chronic ulcer of other part of right foot limited to breakdown of skin; Z79.4 Long term (current) use of insulin; R41.0 Disorientation, unspecified
CPT/HCPCS: 99283; 96360; 36415; 82962; 83930; 85025; 80048; 81001; 82803; J7120

== ENCOUNTER 2019-05-08 09:33 | Inpatient (IN) | payer MEDICARE, OTHER ==
[2019-05-08] MEDS ORDERED: NYSTATIN CREAM 15 GM TP ONE ×2 (09:59→22:15)
[2019-05-08 11:44] LABS: APPEARANCE,URINE CLEAR; BILIRUBIN,URINE NEGATIVE (NEGATIVE); COLOR,URINE YELLOW; GLUCOSE, URINE 50 mg/dL (NEGATIVE); KETONES,URINE TRACE mg/dL (NEGATIVE); LEUKOCYTE ESTERASE,URINE NEGATIVE (NEGATIVE); NITRITE,URINE NEGATIVE (NEGATIVE); PROTEIN,URINE NEGATIVE (NEGATIVE); URINE SPECIFIC GRAVITY 1.013; UROBILINOGEN,URINE NEGATIVE mg/dL (<2.0)
[2019-05-08 12:18] LABS: ALANINE AMINOTRANSFERASE 23 U/L (21-72); ALKALINE PHOSPHATASE 82 U/L (38-126); ANION GAP 6 (5-19); ASPARTATE AMINO TRANSFERASE 20 U/L (17-59); BILIRUBIN,DIRECT 0.3 mg/dL (0.0-0.4); BILIRUBIN,TOTAL 0.4 mg/dL (0.2-1.3); BLOOD UREA NITROGEN 24 mg/dL (7-20); CALCIUM 8.7 mg/dL (8.4-10.2); CARBON DIOXIDE 25 mmol/L (22-30); CHLORIDE 107 mmol/L (98-107); GLUCOSE 182 mg/dL (75-110); POTASSIUM 3.9 mmol/L (3.6-5.0); SODIUM 137.7 mmol/L (137-145); TOTAL PROTEIN 5.5 g/dL (6.3-8.2)
[2019-05-08 12:18] LABS: ABSOLUTE EOSINOPHILS # (AUTO) 0.2 10^3/uL (0.0-0.6); ABSOLUTE LYMPHOCYTES (AUTO) 1.1 10^3/uL (0.5-4.7); ABSOLUTE MONOCYTES (AUTO) 0.6 10^3/uL (0.1-1.4); ABSOLUTE NEUT (AUTO) 4.9 10^3/uL (1.7-8.2); BASOPHILS % (AUTO) 0.3 % (0-2); EOSINOPHILS % (AUTO) 2.2 % (0-6); HEMATOCRIT 40.2 % (37.9-51.0); HEMOGLOBIN 13.4 g/dL (13.5-17.0); LYMPHOCYTES % (AUTO) 15.9 % (13-45); MEAN CORPUSCULAR HEMOGLOBIN 33.2 pg (27.0-33.4); MEAN CORPUSCULAR HGB CONC 33.2 g/dL (32.0-36.0); MEAN CORPUSCULAR VOLUME 100 fl (80-97); MONOCYTES % (AUTO) 9.2 % (3-13); PLATELET COUNT 123 10^3/uL (150-450); RED BLOOD COUNT 4.03 10^6/uL (4.35-5.55); RED CELL DISTRIBUTION WIDTH 13.4 % (11.5-14.0); SEGMENTED NEUTROPHILS % (AUTO) 72.4 % (42-78); TOTAL CELLS COUNTED % (AUTO) 100 %; WHITE BLOOD COUNT 6.7 10^3/uL (4.0-10.5)
[2019-05-08 12:21] LABS: INTERNATIONAL RATION (INR) 1.03; PROTHROMBIN TIME 13.5 SEC (11.4-15.4)
[2019-05-08 12:35] LABS: VENOUS BLOOD BASE EXCESS 2.8 mmol/L; VENOUS BLOOD HCO3 27.4 mmol/L (20-32); VENOUS BLOOD PCO2 42.5 mmHg (35-63); VENOUS BLOOD PH 7.43 (7.30-7.42)
--- NOTE | 2019-05-08 12:48 | RADIOLOGY REPORT (SQ) ---
EXAM DESCRIPTION: CHEST SINGLE VIEW COMPLETED DATE/TIME: 05/08/2019 12:37 pm REASON FOR STUDY: altered mental status COMPARISON: 04/24/2019 TECHNIQUE: Single frontal radiographic view of the chest acquired. NUMBER OF VIEWS: One view. LIMITATIONS: None. FINDINGS: LUNGS AND PLEURA: No pneumothorax. No consolidation or pleural effusion. Similar right ba silar interstitial changes-scarring. MEDIASTINUM AND HILAR STRUCTURES: Stable. HEART AND VASCULAR STRUCTURES: Stable. BONES: No acute findings. HARDWARE: None in the chest. OTHER: No other significant finding. IMPRESSION: NO ACUTE FINDINGS. TECHNICAL DOCUMENTATION: JOB ID: [id number] [place]-72 2010 [employer]- All Rights Reserved Reading location - IP/workstation name: [email or web address]
--- NOTE | 2019-05-08 13:58 | EKG REPORT ---
SEVERITY:- ABNORMAL ECG - ATRIAL FIBRILLATION : Confirmed by: Nino Maldonado 08-May-2019 13:58:08
--- NOTE | 2019-05-08 13:58 | RADIOLOGY REPORT (SQ) ---
EXAM DESCRIPTION: CT HEAD WITHOUT COMPLETED DATE/TIME: 05/08/2019 1:45 pm REASON FOR STUDY: frequent falls COMPARISON: None. TECHNIQUE: Axial images acquired through the brain without intravenous contrast. Images reviewed wi th bone, brain and subdural windows. Images stored on PACS. All CT scanners at this facility use dose modulation, iterative reconstruction, and/or weight based d osing when appropriate to reduce radiation dose to as low as reasonably achievable (ALARA). [facility]: Dose Right [facility]: CareDose [facility]: Dose Right [facility]: Teradose 4D [facility]: [employer] RADIATION DOSE: CT Rad equipment meets quality standard of care and radiation dose reduction techniq ues were employed. CTDIvol: 53.2 mGy. DLP: 1044 mGy-cm. mGy. LIMITATIONS: None. FINDINGS: VENTRICLES: Normal size and contour. CEREBRUM: No hemorrhage. No midline shift. No evidence for acute infarction. Similar areas of low density in the white matter. CEREBELLUM: No masses. No hemorrhage. No alteration of density. No evidence for acute infarction. EXTRAAXIAL SPACES: No fluid collections. No masses. ORBITS AND GLOBE: No intra- or extraconal masses. Normal contour of globe without masses. CALVARIUM: No fracture. Similar postsurgical changes. PARANASAL SINUSES: No fluid or mucosal thickening. SOFT TISSUES: No mass or hematoma. OTHER: No other significant finding. IMPRESSION: NO ACUTE INTRACRANIAL IMAGING FINDINGS. EVIDENCE OF ACUTE STROKE: NO. COMMENT: Quality ID # [id number]: Final reports with documentation of one or more dose reduction techniques (e.g., Automated exposure control, adjustment of the mA and/or kV according to patient size, use of iterative reconstruction technique) TECHNICAL DOCUMENTATION: JOB ID: [id number] [place]-72 2010 [employer]- All Rights Reserved Reading location - IP/workstation name: [email or web address]
--- NOTE | 2019-05-08 14:03 | RADIOLOGY REPORT (SQ) ---
EXAM DESCRIPTION: CT CERVICAL SPINE WITHOUT COMPLETED DATE/TIME: 05/08/2019 1:45 pm REASON FOR STUDY: falls COMPARISON: 04/24/2019 TECHNIQUE: Axial images acquired through the cervical spine without intravenous contrast. Images re viewed with lung, soft tissue and bone windows. Reconstructed coronal and sagittal MPR images review ed. Images stored on PACS. All CT scanners at this facility use dose modulation, iterative reconstruction, and/or weight based d osing when appropriate to reduce radiation dose to as low as reasonably achievable (ALARA). [facility]: Dose Right [facility]: CareDose [facility]: Dose Right [facility]: Teradose 4D [facility]: [employer] RADIATION DOSE: CT Rad equipment meets quality standard of care and radiation dose reduction techniq ues were employed. CTDIvol: 21.3 mGy. DLP: 464 mGy-cm. mGy. LIMITATIONS: None. FINDINGS: ALIGNMENT: Anatomic. MINERALIZATION: Normal. VERTEBRAL BODIES: No fractures or dislocation. DISCS: Multilevel disc space narrowing with osteophytes. FACETS, LATERAL MASSES, POSTERIOR ELEMENTS: Facet arthropathy. No fractures. No dislocation. No ac [place] findings. HARDWARE: None in the spine. VISUALIZED RIBS: No fractures. LUNG APICES AND SOFT TISSUES: 1.8 cm irregularly-shaped nodule in the left apex. OTHER: No other significant finding. IMPRESSION: No acute findings in the cervical spine. 1.8 cm irregularly-shaped nodule in the left apex. TECHNICAL DOCUMENTATION: JOB ID: [id number] [place]-72 Quality ID # [id number]: Final reports with documentation of one or more dose reduction techniques (e.g., Au tomated exposure control, adjustment of the mA and/or kV according to patient size, use of iterative reconstruction technique) 2010 [employer]- All Rights Reserved Reading location - IP/workstation name: [email or web address]
[2019-05-08] MEDS ORDERED: DILTIAZEM HCL INJ 25 MG/5 ML VIAL IV ONE (14:48)
--- NOTE | 2019-05-08 14:57 | ER Document Report ---
ED General - General Chief Complaint: Urinary Problem Stated Complaint: WEAKNESS Time Seen by Provider: 05/08/19 09:50 Primary Care Provider: GLEN CUEVAS MD [Primary Care Provider] - Follow up as needed TRAVEL OUTSIDE OF THE [place] IN LAST 30 DAYS: No - HPI Notes: Patient is an 83-year-old gentleman who presents to the emergency department for evaluation. Initially I was told by EMS that the patient was picked up because of weakness and recent UTI. There is evidently also a complaint of testicular pain. The patient is unable to offer me any real history. He states he has not yet taken his medications today. Eventually came to the department, and was able to offer more history. She states that he has been falling very frequently. She states she always witnesses him fall, has never seen and hit his head or lose consciousness. - Related Data Allergies/Adverse Reactions: No Known Allergies Allergy (Verified 09/02/18 12:05) Home Medications: Nexium, colesevelam, Glucophage, Eliquis, Flomax, vitamin, Aptiom, Kaopectate, melatonin Past Medical History - General Information source: Relative, [facility] Records - Social History Smoking Status: Unknown if Ever Smoked Chew tobacco use (# tins/day): No Frequency of alcohol use: None Drug Abuse: None Family History: Reviewed & Not Pertinent Patient has suicidal ideation: No Patient has homicidal ideation: No - Past Medical History Cardiac Medical History: Reports: Hx Atrial Fibrillation - Recently diagnosed per Denies: Hx Heart Attack, Hx Hypertension Pulmonary Medical History: Denies: Hx Asthma Neurological Medical History: Reports: Hx Seizures - 7-8 YEARS. Denies: Hx Cerebrovascular Accident Endocrine Medical History: Reports: Hx Diabetes Mellitus Type 2 Renal/ Medical History: Denies: Hx Peritoneal Dialysis GI Medical History: Reports: Hx Gastroesophageal Reflux Disease. Denies: Hx Hepatitis, Hx Hiatal Hernia, Hx Ulcer Infectious Medical History: Denies: Hx Hepatitis Past Surgical History: Denies: Hx Open Heart Surgery, Hx Pacemaker Review of Systems - Review of Systems -: Yes ROS unobtainable due to patient's medical condition Physical Exam - Vital signs Vitals: Resp 22 H 05/08/19 10:00 - Notes Notes: This is an 83-year-old male who appears her stated age in no acute distress. He smells very strongly of urine. Head is normocephalic and appears atraumatic. Right pupil is round and reactive to light. He does have an irregularly shaped left pupil. [place] is moist. Heart is irregularly irregular, lungs are clear to oscillation bilaterally. Abdomen soft, nontender, normoactive bowel sounds. Examination of the skin in the genital and gluteal regions reveals severe skin breakdown, moisture, signs of excoriation. He does have skin daphnie kdown over the right gluteal region, over the sacrum. There is well demarcated erythema consistent with possible fungal infection. Patient is awake and alert, but disoriented to place and time. He moves all 4 extremities spontaneously. No gross facial asymmetry. Course - Re-evaluation Re-evalutation: 05/08/19 15:05 Patient presents to the emergency department for evaluation via EMS. Unfortunately, I cannot gather any significant history from the patient. All he knew was from EMS and [facility] records. The patient did smell strongly of urine. Gonzalez catheter was placed in an effort to allow the skin in his scrotal and sacral areas to heal. He has significant erythema and skin breakdown noted. The investigations were centered primarily towards looking for signs of sepsis in this patient, who came in with a heart rate in the 90s, but then was in the low 100s. Urine failed to reveal any significant signs of infection. Chest x-ray was unremarkable. Blood cultures are ordered and pending. When did arrive, she states that he has had progressive weakness. He is falling frequently. EMS noted that they were at the home on average twice a week with lift assistance. Patient is on Eliquis, so given this information I did go ahead and scanned CT of the head and neck. These were found to be unremarkable. Patient returned from CT and had heart rates between 115 and 140. Again I finally did get the medication list and he is not on any rate control medications. He was started on Cardizem. My primary concern with this patient, beyond rate control, as the need for addressing social and care concerns. Patient's is unable to take care of him on her own. She does have other family living with them, but according to the "they work." We discussed the possible need for placement, temporary placement in a rehab facility, or other outcomes. Patient and voiced understanding. 05/08/19 15:12 Dr. Horne came to the department and will admit the patient. - Vital Signs Vital signs: Temp Pulse Resp BP Pulse Ox 98.6 F 24 H 138/87 H 97 05/08/19 11:01 05/08/19 13:01 05/08/19 13:01 05/08/19 13:01 - Laboratory Result Diagrams: 05/08/19 12:00 05/08/19 11:22 Laboratory results interpreted by me: 05/08/19 05/08/19 05/08/19 10:30 11:22 12:00 RBC 4.03 L Hgb 13.4 L MCV 100 H Plt Count 123 L VBG pH BUN 24 H Glucose 182 H POC Glucose Total Protein 5.5 L Albumin 3.0 L Urine Glucose (UA) 50 H Urine Ketones TRACE H 05/08/19 05/08/19 12:08 13:07 RBC Hgb MCV Plt Count VBG pH 7.43 H BUN Glucose POC Glucose 215 H Total Protein Albumin Urine Glucose (UA) Urine Ketones - Diagnostic Test Radiology reviewed: Reports reviewed Radiology results interpreted by me: 05/08/19 14:59 Chest X-Ray 05/08/19 12:20 IMPRESSION: NO ACUTE FINDINGS. Cervical Spine CT 05/08/19 13:27 IMPRESSION: No acute findings in the cervical spine. 1.8 cm irregularly-shaped nodule in the left apex. Head CT 05/08/19 13:27 IMPRESSION: NO ACUTE INTRACRANIAL IMAGING FINDINGS. EVIDENCE OF ACUTE STROKE: NO. - EKG Interpretation by Me Additional EKG results interpreted by me: 05/08/19 15:05 Atrial fibrillation with a rate of 94 weeks/min. Normal axis. No acute ST changes concerning for ischemia or infarction. This is a change from prior study. Discharge - Discharge Clinical Impression: Rapid atrial fibrillation, Generalized weakness Condition: Stable Disposition: ADMITTED INPATIENT Admitting Provider: Coleen (Hospitalist) Unit Admitted: IMCU Referrals: GLEN CUEVAS MD [Primary Care Provider] - Follow up as needed
[2019-05-08] MEDS: DILTIAZEM HCL/D5W 125 MG/125 ML RTUINJ IV PRN (15:26)
[2019-05-08] MEDS ORDERED: ACETAMINOPHEN 325 MG TABLET PO PRN (15:27)
[2019-05-08] MEDS ORDERED: TEMAZEPAM 15 MG CAPSULE PO PRN (15:27)
[2019-05-08] MEDS ORDERED: ONDANSETRON HCL INJ/PF 4 MG/2 ML SDV IV PRN (15:27)
[2019-05-08] MEDS ORDERED: HYDRALAZINE HCL 50 MG TABLET PO ONE (16:00)
--- NOTE | 2019-05-08 16:05 | PDOC H&P ---
History of Present Illness Admission Date/PCP: GLEN CUEVAS MD History of Present Illness: VANI ZHANG is a 83 year old male patient with past medical history of type 2 diabetes mellitus, seizure disorder, BPH, A. fib, brought by EMS with chief complaint of weakness and recent UTI. By the time patient arrived to ER patient found to be in A. fib with RVR with heart rate ranging between 110s and 130. There is no report of fever, chills, cough, chest pain, nausea, vomiting, abdominal pain or diarrhea. Patient does not have urinary complaints. Patient has history of seizure but it is in remission. His also reports this patient has very frequent fall. When I see the patient, patient is disheveled and he smells urine. He has also a skin break on his bottom. He has been on Eliquis for A. fib. He is not on any medication to control his heart rate. 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 Past Medical History Cardiac Medical History: Reports: Atrial Fibrillation - Recently diagnosed per Denies: Myocardial Infarction, Hypertension Pulmonary Medical History: Denies: Asthma Neurological Medical History: Reports: Seizures - 7-8 YEARS Endocrine Medical History: Reports: Diabetes Mellitus Type 1, Diabetes Mellitus Type 2 GI Medical History: Reports: Gastroesophageal Reflux Disease Denies: Hepatitis, Hiatal Hernia Hematology: Denies: Anemia, Sickle Cell Disease Past Surgical History Past Surgical History: Denies: Pacemaker Social History Smoking Status: Unknown if Ever Smoked - Advance Directive Resuscitation Status: Do Not Resuscitate Family History Family History: Reviewed & Not Pertinent Parental Family History Reviewed: Yes Children Family History Reviewed: Yes Sibling(s) Family History Reviewed.: Yes Medication/Allergy Home Medications: Brimonidine Tartrate/Timolol [Combigan Eye Drops] 1 drop OP BID 05/10/15 Colesevelam HCl [Welchol 625 mg Tablet] mg PO 05/10/15 Insulin Aspart [Novolog Insulin (Aspart) 100 unit/mL] unit SUBCUT 05/10/15 Insulin Glargine,Hum.rec.anlog [Lantus] unit SQ 05/10/15 Tamsulosin HCl 0.4 mg PO DAILY 05/10/15 Apixaban [Eliquis 5 mg Tablet] 5 mg PO BID 04/24/19 Cephalexin Monohydrate [Keflex 500 mg Capsule] 500 mg PO Q6H 7 Days capsule 04/24/19 Eslicarbazepine Acetate [Aptiom] 800 mg PO DAILY 04/24/19 Esomeprazole Magnesium 40 mg PO DAILY 04/24/19 Latanoprost [Xalatan 0.005% Oph Soln 2.5 ml] 1 drop OU QHS 04/24/19 Walker [Folding Walker] 1 each ASDIR PRN #1 each 04/24/19 Allergies/Adverse Reactions: No Known Allergies Allergy (Verified 09/02/18 12:05) Review of Systems ROS unobtainable: Due to mental status Physical Exam Vital Signs: Temp Pulse Resp BP Pulse Ox 98.6 F 24 H 138/87 H 97 05/08/19 11:01 05/08/19 13:01 05/08/19 13:01 05/08/19 13:01 Intake & Output 05/07/19 05/08/19 05/09/19 06:59 06:59 06:59 Weight 100.1 kg General appearance: PRESENT: no acute distress, disheveled Head exam: PRESENT: atraumatic Eye exam: PRESENT: conjunctiva pink Neck exam: ABSENT: carotid bruit, JVD, lymphadenopathy, thyromegaly Respiratory exam: PRESENT: decreased breath sounds Cardiovascular exam: PRESENT: irregular rhythm GI/Abdominal exam: PRESENT: normal bowel sounds, soft. ABSENT: distended, guarding, mass, organolmegaly, rebound, tenderness Neurological exam: PRESENT: alert, awake Results Laboratory Results: 05/08/19 12:00 05/08/19 11:22 05/08/19 05/08/19 05/08/19 10:30 11:22 12:00 WBC 6.7 RBC 4.03 L Hgb 13.4 L Hct 40.2 MCV 100 H MCH 33.2 MCHC 33.2 RDW 13.4 Plt Count 123 L Seg Neutrophils % 72.4 Lymphocytes % 15.9 Monocytes % 9.2 Eosinophils % 2.2 Basophils % 0.3 Absolute Neutrophils 4.9 Absolute Lymphocytes 1.1 Absolute Monocytes 0.6 Absolute Eosinophils 0.2 Absolute Basophils 0.0 VBG pH VBG pCO2 VBG HCO3 VBG Base Excess Sodium 137.7 Potassium 3.9 Chloride 107 Carbon Dioxide 25 Anion Gap 6 BUN 24 H Creatinine 1.03 Est GFR ( Amer) > 60 Est GFR (Non-Af Amer) > 60 Glucose 182 H Lactic Acid Calcium 8.7 Total Bilirubin 0.4 AST 20 ALT 23 Alkaline Phosphatase 82 Total Protein 5.5 L Albumin 3.0 L Urine Color YELLOW Urine Appearance CLEAR Urine pH 5.0 Ur Specific [place] 1.013 Urine Protein NEGATIVE Urine Glucose (UA) 50 H Urine Ketones TRACE H Urine Blood NEGATIVE Urine Nitrite NEGATIVE Ur Leukocyte Esterase NEGATIVE Urine WBC (Auto) 1 Urine RBC (Auto) 0 05/08/19 05/08/19 12:08 12:08 WBC RBC Hgb Hct MCV MCH MCHC RDW Plt Count Seg Neutrophils % Lymphocytes % Monocytes % Eosinophils % Basophils % Absolute Neutrophils Absolute Lymphocytes Absolute Monocytes Absolute Eosinophils Absolute Basophils VBG pH 7.43 H VBG pCO2 42.5 VBG HCO3 27.4 VBG Base Excess 2.8 Sodium Potassium Chloride Carbon Dioxide Anion Gap BUN Creatinine Est GFR ( Amer) Est GFR (Non-Af Amer) Glucose Lactic Acid 1.2 Calcium Total Bilirubin AST ALT Alkaline Phosphatase Total Protein Albumin Urine Color Urine Appearance Urine pH Ur Specific [place] Urine Protein Urine Glucose (UA) Urine Ketones Urine Blood Urine Nitrite Ur Leukocyte Esterase Urine WBC (Auto) Urine RBC (Auto) Impressions: Chest X-Ray 05/08/19 12:20 IMPRESSION: NO ACUTE FINDINGS. Cervical Spine CT 05/08/19 13:27 IMPRESSION: No acute findings in the cervical spine. 1.8 cm irregularly-shaped nodule in the left apex. Head CT 05/08/19 13:27 IMPRESSION: NO ACUTE INTRACRANIAL IMAGING FINDINGS. EVIDENCE OF ACUTE STROKE: NO. Assessment and Plan - Diagnosis (1) Atrial fibrillation with RVR Is this a current diagnosis for this admission?: Yes Plan: It has been started on Cardizem drip and p.o. metoprolol. I will hold his Eliquis since patient has recurrent fall and also reportedly a plate in his brain for aneurysm. (2) Recurrent falls Is this a current diagnosis for this admission?: Yes Plan: Patient sometimes she was walker for ambulation but most of the time he does not use. Patient looks deconditions so he may benefit from short-term rehab less than 30 days. (3) Seizure disorder Is this a current diagnosis for this admission?: Yes Plan: In remission (4) Type 2 diabetes mellitus Is this a current diagnosis for this admission?: Yes Plan: I will revise his medication and put him on sliding scale as well. - Inpatient Certification Medical Necessity: Need Close Monitoring Due to Risk of Patient Decompensation, Need For Continuous Telemetry Monitoring
[2019-05-08] MEDS ORDERED: DEXTROSE 50%-WATER 25 GM/50 ML DISP.SYRIN IV PRN ×2 (16:06)
[2019-05-08] MEDS ORDERED: DEXTROSE 40% GEL 15 GM TUBE PO PRN ×2 (16:06)
[2019-05-08] MEDS ORDERED: GLUCAGON,HUMAN RECOMB 1 MG INJ IM PRN (16:06)
[2019-05-08] MEDS: FAMOTIDINE 20 MG TABLET PO SCH (16:50)
[2019-05-08] MEDS: DOCUSATE SODIUM 100 MG/10 ML UDC PO SCH (17:53)
[2019-05-08] MEDS ORDERED: LEVETIRACETAM 500 MG TABLET PO SCH (22:00)
[2019-05-08] MEDS ORDERED: INSULIN GLARGINE,HUM.REC.ANLOG 1,000 UNIT/10 ML VIAL SUBCUT ONE (22:15)
[2019-05-08] MEDS ORDERED: INSULIN GLARGINE,HUM.REC.ANLOG 1,000 UNIT/10 ML VIAL (PYX) SUBCUT ONE (22:25)
[2019-05-08] MEDS ORDERED: LORAZEPAM INJ 2 MG/1 ML VIAL ONE (22:34)
[2019-05-08] MEDS: INSULIN LISPRO 100 UNIT/ML 3 ML VIAL SUBCUT SCH (22:41)
[2019-05-08] MEDS ORDERED: LORAZEPAM INJ 2 MG/1 ML VIAL IV ONE (22:45)
[2019-05-08] MEDS: METOPROLOL TARTRATE 50 MG TABLET PO SCH (23:15)
[2019-05-08] MEDS: HEPARIN SOD (PORCINE) 5,000 UNIT/ML 1 ML SYRINGE SUBCUT SCH (23:16)
[2019-05-08] MEDS ORDERED: LEVETIRACETAM 500 MG/NACL-ISO 500 MG/100 ML RTUPB IV ONE (23:30)
[2019-05-09] MEDS ORDERED: LEVETIRACETAM INJ/PF 500 MG/5 ML SDV IV ONE (00:15)
[2019-05-09] MEDS: DILTIAZEM HCL/D5W 125 MG/125 ML RTUINJ IV PRN (04:51)
[2019-05-09 05:00] LABS: ABSOLUTE EOSINOPHILS # (AUTO) 0.1 10^3/uL (0.0-0.6); ABSOLUTE LYMPHOCYTES (AUTO) 1.2 10^3/uL (0.5-4.7); ABSOLUTE MONOCYTES (AUTO) 0.8 10^3/uL (0.1-1.4); ABSOLUTE NEUT (AUTO) 5.5 10^3/uL (1.7-8.2); BASOPHILS % (AUTO) 0.3 % (0-2); EOSINOPHILS % (AUTO) 0.8 % (0-6); HEMATOCRIT 40.1 % (37.9-51.0); HEMOGLOBIN 13.3 g/dL (13.5-17.0); LYMPHOCYTES % (AUTO) 16.3 % (13-45); MEAN CORPUSCULAR HEMOGLOBIN 33.1 pg (27.0-33.4); MEAN CORPUSCULAR HGB CONC 33.2 g/dL (32.0-36.0); MEAN CORPUSCULAR VOLUME 100 fl (80-97); MONOCYTES % (AUTO) 10.1 % (3-13); RED BLOOD COUNT 4.02 10^6/uL (4.35-5.55); RED CELL DISTRIBUTION WIDTH 13.6 % (11.5-14.0); SEGMENTED NEUTROPHILS % (AUTO) 72.5 % (42-78); TOTAL CELLS COUNTED % (AUTO) 100 %; WHITE BLOOD COUNT 7.5 10^3/uL (4.0-10.5)
[2019-05-09 05:04] LABS: ANION GAP 9 (5-19); BLOOD UREA NITROGEN 23 mg/dL (7-20); CALCIUM 8.5 mg/dL (8.4-10.2); CARBON DIOXIDE 25 mmol/L (22-30); CHLORIDE 105 mmol/L (98-107); GLUCOSE 315 mg/dL (75-110); POTASSIUM 4.3 mmol/L (3.6-5.0); SODIUM 138.5 mmol/L (137-145)
[2019-05-09 05:21] LABS: PLATELET COUNT 111 10^3/uL (150-450)
[2019-05-09] MEDS: HEPARIN SOD (PORCINE) 5,000 UNIT/ML 1 ML SYRINGE SUBCUT SCH ×3 (05:53→21:40)
[2019-05-09] MEDS: FAMOTIDINE 20 MG TABLET PO SCH ×2 (06:02→17:45)
[2019-05-09] MEDS: INSULIN LISPRO 100 UNIT/ML 3 ML VIAL SUBCUT SCH ×4 (08:27→21:46)
[2019-05-09] MEDS ORDERED: DILTIAZEM HCL 180 MG CAPSULE.CR PO ONE (09:00)
[2019-05-09] MEDS: METOPROLOL TARTRATE 50 MG TABLET PO SCH ×2 (09:06→21:45)
[2019-05-09] MEDS: DOCUSATE SODIUM 100 MG/10 ML UDC PO SCH ×2 (09:06→17:44)
[2019-05-09] MEDS: NYSTATIN CREAM 15 GM TP SCH (09:13)
[2019-05-09] MEDS: DONEPEZIL HCL 5 MG TABLET PO SCH (10:53)
[2019-05-09] MEDS: TAMSULOSIN HCL 0.4 MG CAP.SR.24H PO SCH (10:53)
--- NOTE | 2019-05-09 11:13 | ADVANCED CARE ---
Resuscitation Status: Do Not Resuscitate Discussion: I have a long discussion with his who is a surrogate decision maker about patient's CODE STATUS. She states that patient does not want any aggressive or heroic measures to salvage in the event of respiratory or cardiac arrest. Patient agrees with medical management including pain control, oxygen, IV fluids and antibiotics. Care Planning Goals: DNR/DNI
--- NOTE | 2019-05-09 11:26 | PDOC PROGRESS REPORT ---
Subjective Progress Note for:: 05/09/19 Subjective:: VANI ZHANG is a 83 year old male patient with past medical history of type 2 diabetes mellitus, seizure disorder, BPH, A. fib, brought by EMS with chief complaint of weakness and recent UTI. By the time patient arrived to ER patient found to be in A. fib with RVR with heart rate ranging between 110s and 130. There is no report of fever, chills, cough, chest pain, nausea, vomiting, abdominal pain or diarrhea. Patient does not have urinary complaints. Patient has history of seizure but it is in remission. His also reports this patient has very frequent fall. When I see the patient, patient is disheveled and he smells urine. He has also a skin break on his bottom. He has been on Eliquis for A. fib. He is not on any medication to control his heart rate. 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 05/09/2019: Morning patient seen propped up in bed and enjoying his breakfast. He is chronically sick looking. He is awake alert. His heart rate well controlled. I switch his Cardizem drip to p.o. Cardizem. Reason For Visit: AFIB WITH RVR Physical Exam Vital Signs: Temp Pulse Resp BP Pulse Ox 97.9 F 97 20 149/91 H 97 05/09/19 08:15 05/09/19 08:15 05/09/19 08:15 05/09/19 08:15 05/09/19 08:15 Intake & Output 05/08/19 05/09/19 05/10/19 06:59 06:59 06:59 Intake Total 114 153 Output Total 1675 Balance -1561 153 Weight 98.7 kg General appearance: PRESENT: no acute distress, hard of hearing Head exam: PRESENT: atraumatic Eye exam: PRESENT: conjunctiva pink Neck exam: ABSENT: carotid bruit, JVD, lymphadenopathy, thyromegaly Respiratory exam: PRESENT: decreased breath sounds. ABSENT: rales, rhonchi, wheezes Cardiovascular exam: PRESENT: irregular rhythm. ABSENT: diastolic murmur, rubs, systolic murmur GI/Abdominal exam: PRESENT: normal bowel sounds, soft. ABSENT: distended, guarding, mass, organolmegaly, rebound, tenderness Neurological exam: PRESENT: alert, awake Results Laboratory Results: 05/09/19 04:06 05/09/19 04:06 05/08/19 05/08/19 05/08/19 10:30 11:22 12:00 WBC 6.7 RBC 4.03 L Hgb 13.4 L Hct 40.2 MCV 100 H MCH 33.2 MCHC 33.2 RDW 13.4 Plt Count 123 L Seg Neutrophils % 72.4 Lymphocytes % 15.9 Monocytes % 9.2 Eosinophils % 2.2 Basophils % 0.3 Absolute Neutrophils 4.9 Absolute Lymphocytes 1.1 Absolute Monocytes 0.6 Absolute Eosinophils 0.2 Absolute Basophils 0.0 VBG pH VBG pCO2 VBG HCO3 VBG Base Excess Sodium 137.7 Potassium 3.9 Chloride 107 Carbon Dioxide 25 Anion Gap 6 BUN 24 H Creatinine 1.03 Est GFR ( Amer) > 60 Est GFR (Non-Af Amer) > 60 Glucose 182 H Lactic Acid Calcium 8.7 Total Bilirubin 0.4 AST 20 ALT 23 Alkaline Phosphatase 82 Total Protein 5.5 L Albumin 3.0 L TSH Urine Color YELLOW Urine Appearance CLEAR Urine pH 5.0 Ur Specific [place] 1.013 Urine Protein NEGATIVE Urine Glucose (UA) 50 H Urine Ketones TRACE H Urine Blood NEGATIVE Urine Nitrite NEGATIVE Ur Leukocyte Esterase NEGATIVE Urine WBC (Auto) 1 Urine RBC (Auto) 0 05/08/19 05/08/19 05/09/19 12:08 12:08 04:06 WBC 7.5 RBC 4.02 L Hgb 13.3 L Hct 40.1 MCV 100 H MCH 33.1 MCHC 33.2 RDW 13.6 Plt Count 111 L Seg Neutrophils % 72.5 Lymphocytes % 16.3 Monocytes % 10.1 Eosinophils % 0.8 Basophils % 0.3 Absolute Neutrophils 5.5 Absolute Lymphocytes 1.2 Absolute Monocytes 0.8 Absolute Eosinophils 0.1 Absolute Basophils 0.0 VBG pH 7.43 H VBG pCO2 42.5 VBG HCO3 27.4 VBG Base Excess 2.8 Sodium Potassium Chloride Carbon Dioxide Anion Gap BUN Creatinine Est GFR ( Amer) Est GFR (Non-Af Amer) Glucose Lactic Acid 1.2 Calcium Total Bilirubin AST ALT Alkaline Phosphatase Total Protein Albumin TSH Urine Color Urine Appearance Urine pH Ur Specific [place] Urine Protein Urine Glucose (UA) Urine Ketones Urine Blood Urine Nitrite Ur Leukocyte Esterase Urine WBC (Auto) Urine RBC (Auto) 05/09/19 05/09/19 04:06 04:06 WBC RBC Hgb Hct MCV MCH MCHC RDW Plt Count Seg Neutrophils % Lymphocytes % Monocytes % Eosinophils % Basophils % Absolute Neutrophils Absolute Lymphocytes Absolute Monocytes Absolute Eosinophils Absolute Basophils VBG pH VBG pCO2 VBG HCO3 VBG Base Excess Sodium 138.5 Potassium 4.3 Chloride 105 Carbon Dioxide 25 Anion Gap 9 BUN 23 H Creatinine 1.16 Est GFR ( Amer) > 60 Est GFR (Non-Af Amer) > 60 Glucose 315 H Lactic Acid Calcium 8.5 Total Bilirubin AST ALT Alkaline Phosphatase Total Protein Albumin TSH 2.47 Urine Color Urine Appearance Urine pH Ur Specific [place] Urine Protein Urine Glucose (UA) Urine Ketones Urine Blood Urine Nitrite Ur Leukocyte Esterase Urine WBC (Auto) Urine RBC (Auto) Impressions: Chest X-Ray 05/08/19 12:20 IMPRESSION: NO ACUTE FINDINGS. Cervical Spine CT 05/08/19 13:27 IMPRESSION: No acute findings in the cervical spine. 1.8 cm irregularly-shaped nodule in the left apex. Head CT 05/08/19 13:27 IMPRESSION: NO ACUTE INTRACRANIAL IMAGING FINDINGS. EVIDENCE OF ACUTE STROKE: NO. Assessment and Plan - Diagnosis (1) Atrial fibrillation with RVR Is this a current diagnosis for this admission?: Yes Plan: Rate is controlled (2) Recurrent falls Is this a current diagnosis for this admission?: Yes Plan: Patient sometimes she was walker for ambulation but most of the time he does not use. Patient looks deconditions so he may benefit from short-term rehab less than 30 days. (3) Seizure disorder Is this a current diagnosis for this admission?: Yes Plan: In remission (4) Type 2 diabetes mellitus Is this a current diagnosis for this admission?: Yes Plan: I will revise his medication and put him on sliding scale as well.
[2019-05-09] MEDS ORDERED: LORAZEPAM INJ 2 MG/1 ML VIAL IV ONE (16:00)
[2019-05-09] MEDS: LEVETIRACETAM 500 MG/NACL-ISO 500 MG/100 ML RTUPB IV SCH (21:45)
[2019-05-09] MEDS: INSULIN GLARGINE,HUM.REC.ANLOG 1,000 UNIT/10 ML VIAL SUBCUT SCH (21:46)
[2019-05-10] MEDS: HEPARIN SOD (PORCINE) 5,000 UNIT/ML 1 ML SYRINGE SUBCUT SCH ×3 (05:32→22:28)
[2019-05-10] MEDS: FAMOTIDINE 20 MG TABLET PO SCH ×3 (06:06→17:03)
[2019-05-10 06:37] LABS: ANION GAP 6 (5-19); BLOOD UREA NITROGEN 20 mg/dL (7-20); CALCIUM 8.3 mg/dL (8.4-10.2); CARBON DIOXIDE 26 mmol/L (22-30); CHLORIDE 105 mmol/L (98-107); GLUCOSE 263 mg/dL (75-110); POTASSIUM 4.4 mmol/L (3.6-5.0); SODIUM 136.9 mmol/L (137-145)
[2019-05-10] MEDS: INSULIN LISPRO 100 UNIT/ML 3 ML VIAL SUBCUT SCH ×4 (08:34→22:27)
--- NOTE | 2019-05-10 11:17 | PDOC PROGRESS REPORT ---
Subjective Progress Note for:: 05/10/19 Subjective:: VANI ZHANG is a 83 year old male patient with past medical history of type 2 diabetes mellitus, seizure disorder, BPH, A. fib, brought by EMS with chief complaint of weakness and recent UTI. By the time patient arrived to ER patient found to be in A. fib with RVR with heart rate ranging between 110s and 130. There is no report of fever, chills, cough, chest pain, nausea, vomiting, abdominal pain or diarrhea. Patient does not have urinary complaints. Patient has history of seizure but it is in remission. His also reports this patient has very frequent fall. When I see the patient, patient is disheveled and he smells urine. He has also a skin break on his bottom. He has been on Eliquis for A. fib. He is not on any medication to control his heart rate. 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 05/09/2019: Morning patient seen propped up in bed and enjoying his breakfast. He is chronically sick looking. He is awake alert. His heart rate well controlled. I switch his Cardizem drip to p.o. Cardizem. 05/10/2019: Patient seen resting in bed comfortably. No significant event overnight. His states that she is no more able to take care of him and she requests [facility] facility placement. His MCV is elevated so I request for serum B12 and folate levels. Reason For Visit: AFIB WITH RVR Physical Exam Vital Signs: Temp Pulse Resp BP Pulse Ox 98.4 F 88 16 133/50 H 97 05/10/19 08:55 05/10/19 08:55 05/10/19 08:55 05/10/19 08:55 05/10/19 08:55 Intake & Output 05/09/19 05/10/19 05/11/19 06:59 06:59 06:59 Intake Total 114 753 Output Total 1675 990 Balance -1561 -237 Weight 98.7 kg 99.7 kg General appearance: PRESENT: no acute distress Head exam: PRESENT: atraumatic Eye exam: PRESENT: conjunctiva pink Neck exam: ABSENT: carotid bruit, JVD, lymphadenopathy, thyromegaly Respiratory exam: PRESENT: clear to auscultation jonathan. ABSENT: rales, rhonchi, wheezes Cardiovascular exam: PRESENT: RRR. ABSENT: diastolic murmur, rubs, systolic murmur GI/Abdominal exam: PRESENT: normal bowel sounds, soft. ABSENT: distended, guarding, mass, organolmegaly, rebound, tenderness Neurological exam: PRESENT: alert, awake Results Laboratory Results: 05/09/19 04:06 05/10/19 06:03 05/10/19 06:03 Sodium 136.9 L Potassium 4.4 Chloride 105 Carbon Dioxide 26 Anion Gap 6 BUN 20 Creatinine 1.02 Est GFR ( Amer) > 60 Est GFR (Non-Af Amer) > 60 Glucose 263 H Calcium 8.3 L Impressions: Chest X-Ray 05/08/19 12:20 IMPRESSION: NO ACUTE FINDINGS. Cervical Spine CT 05/08/19 13:27 IMPRESSION: No acute findings in the cervical spine. 1.8 cm irregularly-shaped nodule in the left apex. Head CT 05/08/19 13:27 IMPRESSION: NO ACUTE INTRACRANIAL IMAGING FINDINGS. EVIDENCE OF ACUTE STROKE: NO. Assessment and Plan - Diagnosis (1) Atrial fibrillation with RVR Is this a current diagnosis for this admission?: Yes Plan: Rate is controlled (2) Recurrent falls Is this a current diagnosis for this admission?: Yes Plan: Patient sometimes she was walker for ambulation but most of the time he does not use. Patient looks deconditions so he may benefit from short-term rehab less than 30 days. (3) Seizure disorder Is this a current diagnosis for this admission?: Yes Plan: In remission (4) Type 2 diabetes mellitus Is this a current diagnosis for this admission?: Yes Plan: I will revise his medication and put him on sliding scale as well. (5) Physical deconditioning Is this a current diagnosis for this admission?: Yes Plan: Patient would benefit [facility] facility placement for short-term acute rehab less than 30 days.
[2019-05-10] MEDS: DONEPEZIL HCL 5 MG TABLET PO SCH (11:31)
[2019-05-10] MEDS: DOCUSATE SODIUM 100 MG/10 ML UDC PO SCH ×2 (11:31→17:03)
[2019-05-10] MEDS: DILTIAZEM HCL 180 MG CAPSULE.CR PO SCH (11:31)
[2019-05-10] MEDS: TAMSULOSIN HCL 0.4 MG CAP.SR.24H PO SCH (11:31)
[2019-05-10] MEDS: METOPROLOL TARTRATE 50 MG TABLET PO SCH ×2 (11:31→22:29)
[2019-05-10] MEDS: NYSTATIN CREAM 15 GM TP SCH (11:32)
[2019-05-10] MEDS ORDERED: INSULIN LISPRO 100 UNIT/ML 3 ML VIAL SUBCUT ONE (16:15)
[2019-05-10] MEDS: INSULIN GLARGINE,HUM.REC.ANLOG 1,000 UNIT/10 ML VIAL SUBCUT SCH (22:28)
[2019-05-10] MEDS: LEVETIRACETAM 500 MG/NACL-ISO 500 MG/100 ML RTUPB IV SCH (22:28)
[2019-05-11 04:52] LABS: ANION GAP 10 (5-19); BLOOD UREA NITROGEN 19 mg/dL (7-20); CALCIUM 8.7 mg/dL (8.4-10.2); CARBON DIOXIDE 23 mmol/L (22-30); CHLORIDE 105 mmol/L (98-107); GLUCOSE 233 mg/dL (75-110); POTASSIUM 4.7 mmol/L (3.6-5.0); SODIUM 138.1 mmol/L (137-145)
[2019-05-11] MEDS: HEPARIN SOD (PORCINE) 5,000 UNIT/ML 1 ML SYRINGE SUBCUT SCH ×3 (05:46→21:01)
[2019-05-11] MEDS: FAMOTIDINE 20 MG TABLET PO SCH ×2 (05:46→17:19)
--- NOTE | 2019-05-11 08:20 | RADIOLOGY REPORT (SQ) ---
EXAM DESCRIPTION: CHEST SINGLE VIEW COMPLETED DATE/TIME: 05/11/2019 8:02 am REASON FOR STUDY: possible aspiration COMPARISON: 04/24/2019, 05/08/2019 EXAM PARAMETERS: NUMBER OF VIEWS: One view. TECHNIQUE: Single frontal radiographic view of the chest acquired. RADIATION DOSE: NA LIMITATIONS: None. FINDINGS: LUNGS AND PLEURA: Patchy airspace disease right lower lobe worrisome for pneumonia. Left lung grossly clear. No pleural effusions or pneumothorax. MEDIASTINUM AND HILAR STRUCTURES: No masses. Contour normal. HEART AND VASCULAR STRUCTURES: Heart normal in size. Normal vasculature. BONES: Old right posterior rib fractures HARDWARE: None in the chest. OTHER: No other significant finding. IMPRESSION: Right lower lobe pneumonia TECHNICAL DOCUMENTATION: JOB ID: [id number] [employer]- All Rights Reserved Reading location - IP/workstation name: [email or web address]
[2019-05-11] MEDS: INSULIN LISPRO 100 UNIT/ML 3 ML VIAL SUBCUT SCH ×4 (08:57→21:25)
[2019-05-11] MEDS ORDERED: ONDANSETRON HCL INJ/PF 4 MG/2 ML SDV IV PRN (09:00)
[2019-05-11] MEDS: TAMSULOSIN HCL 0.4 MG CAP.SR.24H PO SCH (09:48)
[2019-05-11] MEDS: DILTIAZEM HCL 180 MG CAPSULE.CR PO SCH (09:48)
[2019-05-11] MEDS: DONEPEZIL HCL 5 MG TABLET PO SCH (09:48)
[2019-05-11] MEDS: METOPROLOL TARTRATE 50 MG TABLET PO SCH ×2 (09:48→21:00)
[2019-05-11] MEDS: PIPERACILLIN SODIUM/TAZOBACTAM 3.375 GM in NORMAL SALINE 100 ML IV SCH ×3 (09:49→20:05)
[2019-05-11] MEDS: NYSTATIN CREAM 15 GM TP SCH (09:50)
[2019-05-11] MEDS: DOCUSATE SODIUM 100 MG CAPSULE PO SCH ×2 (09:50→17:18)
[2019-05-11] MEDS ORDERED: HALOPERIDOL LACTATE INJ 5 MG/1 ML VIAL IV PRN (12:11)
--- NOTE | 2019-05-11 12:17 | PDOC PROGRESS REPORT ---
Subjective Progress Note for:: 05/11/19 Subjective:: VANI ZHANG is a 83 year old male patient with past medical history of type 2 diabetes mellitus, seizure disorder, BPH, A. fib, brought by EMS with chief complaint of weakness and recent UTI. By the time patient arrived to ER patient found to be in A. fib with RVR with heart rate ranging between 110s and 130. There is no report of fever, chills, cough, chest pain, nausea, vomiting, abdominal pain or diarrhea. Patient does not have urinary complaints. Patient has history of seizure but it is in remission. His also reports this patient has very frequent fall. When I see the patient, patient is disheveled and he smells urine. He has also a skin break on his bottom. He has been on Eliquis for A. fib. He is not on any medication to control his heart rate. 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 05/09/2019: Morning patient seen propped up in bed and enjoying his breakfast. He is chronically sick looking. He is awake alert. His heart rate well controlled. I switch his Cardizem drip to p.o. Cardizem. 05/10/2019: Patient seen resting in bed comfortably. No significant event overnight. His states that she is no more able to take care of him and she requests fpc facility placement. His MCV is elevated so I request for serum B12 and folate levels. 05/11/2019: Patient seen resting in bed. Reportedly patient has an episode of aspiration and choking. His stat chest x-ray reported as right lower lobe airspace disease worrisome for pneumonia. Patient empirically started on Zosyn. Patient therapist evaluate the patient and suggested that patient is at risk for aspiration so we will follow her recommendation. Reason For Visit: AFIB WITH RVR Physical Exam Vital Signs: Temp Pulse Resp BP Pulse Ox 101.7 F H 99 19 139/75 H 94 05/11/19 08:25 05/11/19 08:25 05/11/19 08:25 05/11/19 08:25 05/11/19 08:25 Intake & Output 05/10/19 05/11/19 05/12/19 06:59 06:59 06:59 Intake Total 753 710 100 Output Total 990 1100 Balance -237 -390 100 Weight 99.7 kg 102.4 kg General appearance: PRESENT: no acute distress Head exam: PRESENT: atraumatic Eye exam: PRESENT: conjunctiva pink Neck exam: ABSENT: carotid bruit, JVD, lymphadenopathy, thyromegaly Respiratory exam: PRESENT: decreased breath sounds, rales Cardiovascular exam: PRESENT: irregular rhythm Neurological exam: PRESENT: alert, awake Results Laboratory Results: 05/09/19 04:06 05/11/19 04:07 05/11/19 04:07 Sodium 138.1 Potassium 4.7 Chloride 105 Carbon Dioxide 23 Anion Gap 10 BUN 19 Creatinine 1.01 Est GFR ( Amer) > 60 Est GFR (Non-Af Amer) > 60 Glucose 233 H Calcium 8.7 Vitamin B12 > 1000.0 H Folate 17.60 05/08/19 10:30 Gonzalez Catheter Urine Culture - Final NO GROWTH 2 DAYS Impressions: Cervical Spine CT 05/08/19 13:27 IMPRESSION: No acute findings in the cervical spine. 1.8 cm irregularly-shaped nodule in the left apex. Head CT 05/08/19 13:27 IMPRESSION: NO ACUTE INTRACRANIAL IMAGING FINDINGS. EVIDENCE OF ACUTE STROKE: NO. Chest X-Ray 05/11/19 00:00 IMPRESSION: Right lower lobe pneumonia Assessment and Plan - Diagnosis (1) Aspiration pneumonia Is this a current diagnosis for this admission?: Yes Plan: He is a stat chest x-ray revealed right lower lobe airspace disease which is worrisome for pneumonia. Patient has been started empirically on Zosyn. (2) Atrial fibrillation with RVR Is this a current diagnosis for this admission?: Yes Plan: Rate is controlled (3) Recurrent falls Is this a current diagnosis for this admission?: Yes Plan: Patient sometimes she was walker for ambulation but most of the time he does not use. Patient looks deconditions so he may benefit from short-term rehab less than 30 days. (4) Seizure disorder Is this a current diagnosis for this admission?: Yes Plan: In remission (5) Type 2 diabetes mellitus Is this a current diagnosis for this admission?: Yes Plan: I will revise his medication and put him on sliding scale as well. (6) Physical deconditioning Is this a current diagnosis for this admission?: Yes Plan: Patient would benefit fpc facility placement for short-term acute rehab less than 30 days.
[2019-05-11] MEDS: LEVETIRACETAM 500 MG/NACL-ISO 500 MG/100 ML RTUPB IV SCH (21:01)
[2019-05-11] MEDS ORDERED: INSULIN GLARGINE,HUM.REC.ANLOG 1,000 UNIT/10 ML VIAL SUBCUT SCH ×2 (22:00)
[2019-05-12] MEDS: PIPERACILLIN SODIUM/TAZOBACTAM 3.375 GM in NORMAL SALINE 100 ML IV SCH ×2 (01:59→08:54)
[2019-05-12] MEDS: HEPARIN SOD (PORCINE) 5,000 UNIT/ML 1 ML SYRINGE SUBCUT SCH ×2 (05:24→13:07)
[2019-05-12] MEDS: FAMOTIDINE 20 MG TABLET PO SCH (05:37)
[2019-05-12] MEDS: INSULIN LISPRO 100 UNIT/ML 3 ML VIAL SUBCUT SCH ×2 (08:55→13:07)
[2019-05-12] MEDS: METOPROLOL TARTRATE 50 MG TABLET PO SCH (09:03)
[2019-05-12] MEDS: DILTIAZEM HCL 180 MG CAPSULE.CR PO SCH (09:03)
[2019-05-12] MEDS: TAMSULOSIN HCL 0.4 MG CAP.SR.24H PO SCH (09:03)
[2019-05-12] MEDS: DONEPEZIL HCL 5 MG TABLET PO SCH (09:03)
[2019-05-12] MEDS: DOCUSATE SODIUM 100 MG CAPSULE PO SCH (09:04)
[2019-05-12] MEDS: NYSTATIN CREAM 15 GM TP SCH (09:05)
[2019-05-12 12:11] VITALS: BP 111/50
--- NOTE | 2019-05-12 12:51 | PDOC TRANSFER SUMMARY ---
General - Admit/Disc Date/PCP Admission Date/Primary Care Provider: 05/08/19 15:53 GLEN CUEVAS MD Discharge Date: 05/12/19 - Discharge Diagnosis (1) Atrial fibrillation with RVR Is this a current diagnosis for this admission?: Yes Summary: The patient presented with atrial fibrillation and rapid ventricular response. He has a history of atrial fibrillation. Diltiazem was added to the metoprolol. His rate is under good control but he is still in fibrillation. Continue an ticoagulation. (2) Aspiration pneumonia Is this a current diagnosis for this admission?: Yes Summary: Patient has a history of aspiration. He did aspirate yesterday. The x-ray showed right lower lobe infiltrate. Is unlikely to develop that quickly however after discussion with the patient's daughter difficulty swallowing and a spiration have been an ongoing problem. He will complete 7 days of Zosyn 3.375 mg every 6 hours. He was seen by speech therapy. He will be on a thin liquid pured diet with aspiration precautions. (3) Physical deconditioning Is this a current diagnosis for this admission?: Yes Summary: He has a history of seizure disorder and is currently being treated with Aricept. There is some dementia. Evidently he has been getting weaker slowly over time. He will need ongoing physical and occupational therapies. (4) Type 2 diabetes mellitus Is this a current diagnosis for this admission?: Yes Summary: He should be on a controlled carbohydrate cardiac diet. He is on Lantus and sliding scale. I would adjust Lantus based on sliding scale requirements. (5) Seizure disorder Is this a current diagnosis for this admission?: Yes Summary: There is been no seizure activity during this hospitalization. I would continue his previous medication regimen. (6) Recurrent falls Is this a current diagnosis for this admission?: Yes Summary: Most likely due to increased deconditioning. Balance can certainly be affected by dementia. Continue therapy as noted above. - Additional Information Resuscitation Status: Do Not Resuscitate Discharge Diet: Cardiac Discharge Activity: Activity As Tolerated, Balance Activity w/Rest, Other - Per physical therapy Prescriptions: Metoprolol Succinate [Toprol Xl] 100 mg PO DAILY 30 Days #30 tab.er.24h Home Medications: Apixaban [Eliquis 5 mg Tablet] 5 mg PO Q12 05/08/19 Brimonidine Tartrate/Timolol [Combigan 0.2%-0.5% Eye Drops] 1 drop OU BID 05/08/19 Colesevelam HCl [Welchol 625 mg Tablet] 1,250 mg PO TID 05/08/19 Donepezil HCl [Aricept 5 mg Tablet] 5 mg PO DAILY 05/08/19 Eslicarbazepine Acetate [Aptiom] 800 mg PO DAILY 05/08/19 Esomeprazole Magnesium 40 mg PO DAILY 05/08/19 Latanoprost [Xalatan 0.005% Oph Soln 2.5 ml] 1 drop OU QHS 05/08/19 Tamsulosin HCl [Flomax 0.4 mg Cap.sr] 0.4 mg PO DAILY 05/08/19 Acetaminophen [Tylenol 325 mg Tablet] 650 mg PO Q4HP PRN tablet 05/12/19 Diltiazem HCl [Cardizem Cd 180 mg Capsule] 180 mg PO DAILY capsule.cr 05/12/19 Docusate Sodium [Colace 100 mg Capsule] 100 mg PO BID capsule 05/12/19 Donepezil HCl [Aricept 5 mg Tablet] 5 mg PO DAILY tablet 05/12/19 Insulin Glargine,Hum.rec.anlog [Lantus Insulin 100 Unit/1 ml 10 ml] 20 unit SUBCUT QHS unit 05/12/19 Insulin Lispro [Humalog Insulin (Lispro) 100 unit/mL] 0 - 12 unit SUBCUT ACHS unit 05/12/19 Metoprolol Succinate [Toprol Xl] 100 mg PO DAILY 30 Days #30 tab.er.24h 05/12/19 Nystatin [Mycostatin Cream 15 gm] 1 applic TP DAILY tube 05/12/19 Piperacillin Sodium/Tazobactam [Zosyn Inj 3.375 gm Vial] 3.375 gm IV Q6A vial 0 05/12/19 Tamsulosin HCl [Flomax 0.4 mg Cap.sr] 0.4 mg PO DAILY cap.sr.24h 05/12/19 History of Present Illness Admission Date/PCP: 05/08/19 15:53 GLEN CUEVAS MD Patient complains of: Brought to the emergency department with complaints of weakness and recent urinary tract infection History of Present Illness: VANI ZHANG is a 83 year old male with a history of diabetes, benign prostatic hypertrophy, atrial fibrillation, and recent urinary tract infection presented with increased weakness. He has a history of esophageal stricture requiring dilatation. Family reports that he has been noted to cough while eating and drinking. He also has had 2 come to the emergency department for food lodged in his esophagus. In the emergency department he was found to be in atrial fibrillation with rapid ventricular response. He was referred to the hospital service for admission. Hospital Course Hospital Course: The patient's hospital course was fairly unremarkable. Yesterday he did aspirate and was started on Zosyn. As noted above he likely has a chronic history of aspiration for some time now. The infiltrate at the right base is probably an accumulation of small episodes rather than a single episode yesterday. He will complete 7 days of Zosyn therapy. His atrial fibrillation was rate controlled with combination of diltiazem and metoprolol. He will be switched to the long-acting form of the metoprolol and continued on the diltiazem. He will return to his anticoagulation. If therapy finds that ongoing PT does not stabilize his gait enough to prevent falls then consider discontinuing anticoagulation with the known risk of thrombus formation in the heart with his atrial fibrillation. The dietitian has seen the patient and recommends pured diet with thin liquids no straws. Typical aspiration precautions should be noted. He has been seizure-free and I would continue his Aptiom. He has been on Lantus with a Humalog sliding scale. His glucoses have all been under 300 but over 200. He would likely benefit from an adjustment in his Lantus. His diet has changed somewhat and I would continue sliding scale and adjust Lantus based on his sliding scale garments. Physical Exam Vital Signs: Temp Pulse Resp BP Pulse Ox 98.9 F 100 16 131/60 H 90 L 05/12/19 07:48 05/12/19 07:48 05/12/19 07:48 05/12/19 07:48 05/12/19 07:48 Intake & Output 05/11/19 05/12/19 05/13/19 06:59 06:59 06:59 Intake Total 710 718 Output Total 1100 1175 Balance -390 -457 Weight 102.4 kg 91.2 kg General appearance: PRESENT: no acute distress, well-developed. ABSENT: cooperative - Minimally interactive Respiratory exam: PRESENT: clear to auscultation jonathan - Limited inspiratory phase. Possible faint rhonchi at the right base but difficult to auscultate, rhonchi - As above, symmetrical, unlabored. ABSENT: accessory muscle use, rales, tachypnea, wheezes Cardiovascular exam: PRESENT: irregular rhythm GI/Abdominal exam: PRESENT: normal bowel sounds, soft. ABSENT: distended, tenderness Rectal exam: PRESENT: deferred Gentrourinary exam: ABSENT: indwelling catheter Extremities exam: ABSENT: calf tenderness, pedal edema Musculoskeletal exam: PRESENT: normal inspection Neurological exam: PRESENT: alert - He has a very flat affect and had very minimal to no verbal interaction, awake Psychiatric exam: PRESENT: flat affect. ABSENT: agitated, anxious Results Laboratory Results: 05/09/19 04:06 05/11/19 04:07 Impressions: Cervical Spine CT 05/08/19 13:27 IMPRESSION: No acute findings in the cervical spine. 1.8 cm irregularly-shaped nodule in the left apex. Head CT 05/08/19 13:27 IMPRESSION: NO ACUTE INTRACRANIAL IMAGING FINDINGS. EVIDENCE OF ACUTE STROKE: NO. Chest X-Ray 05/11/19 00:00 IMPRESSION: Right lower lobe pneumonia Transfer Plan - Disposition Transfer Plan: Transfer to [facility] - Time Spent with Patient Time spent with patient: Greater than 30 Minutes Qualifiers - * PATIENT BEING DISCHARGED WITH ANY OF THE FOLLOWING DIAGNOSIS: No Acute Heart Failure - Is this a Heart Failure Patient?: No Plan Discharge Plan: Transfer to [facility] Time Spent: Greater than 30 Minutes
[2019-05-12] MEDS ORDERED: PANTOPRAZOLE SODIUM 40 MG TABLET.DR PO SCH (13:30)
[2019-05-13] MEDS ORDERED: (PENDING PHARMACY ID) (Esomeprazole Magnesium [Esomeprazole Magnesium] 40 MG) PO SCH (10:00)
[2019-05-13] MEDS ORDERED: (PENDING PHARMACY ID) (Eslicarbazepine Acetate [Aptiom] 800 MG) PO SCH (10:00)
== END 2019-05-12 16:15 | DRG 308 ==
LOC: ER 09:33 → EH 15:53 → 3S 18:58
PROVIDERS: ADMIT Internal Medicine; ATTEND Internal Medicine
DX: I48.91 Unspecified atrial fibrillation (principal); J69.0 Pneumonitis due to inhalation of food and vomit; E11.9 Type 2 diabetes mellitus without complications; N40.0 Benign prostatic hyperplasia without lower urinary tract symptoms; G40.909 Epilepsy, unspecified, not intractable, without status epilepticus; F03.90 Unspecified dementia, unspecified severity, without behavioral disturbance, psychotic disturbance, mood disturbance, and anxiety; Z79.01 Long term (current) use of anticoagulants; Z91.81 History of falling; Z79.4 Long term (current) use of insulin; Z66 Do not resuscitate
CPT/HCPCS: 36415; 51702; 70450; 71045; 72125; 80048; 80053; 81001; 82607; 82746; 82803; 82962; 83605; 84443; 85025; 85610; 87040; 87086; 93005; 93010; 96374; 99285; J1815; J1953; J2060; J2543; J3490; J7050